=== PATIENT | female | born 1965 | race Caucasian/White ===

== ENCOUNTER → 2020-02-10 09:38 | Outpatient (BNVA) | payer MEDICARE, SELFPAY | PROVIDERS: Family Provider Nurse Practitioner Family; PCP Nurse Practitioner Family; Visit Provider Family Medicine | DX: S50.12XA Contusion of left forearm, initial encounter (principal); X58.XXXA Exposure to other specified factors, initial encounter | CPT/HCPCS: 73090 ==

== ENCOUNTER 2021-03-14 23:16 | Emergency (ER) | payer MEDICARE, SELFPAY ==
[2021-03-14 23:35] VITALS: BP 147/91; PULSE 67; RESP 15; TEMP 36.6; O2SAT 100; BMI 24.4
--- NOTE | 2021-03-14 23:40 | PC.NURSE ---
Patient was placed in [facility] in triage.
--- NOTE | 2021-03-14 23:56 | CTR_ITS ---
PROCEDURE INFORMATION: Exam: CT Cervical Spine Without Contrast Exam date and time: 03/14/2021 11:57 PM Age: 56 years old Clinical indication: Injury or trauma; Blunt trauma; Injury details: Fall off horse x Friday. Headache and pain in neck; Additional info: Fall of horse TECHNIQUE: Imaging protocol: Computed tomography images of the cervical spine without contrast. Radiation optimization: All CT scans at this facility use at least one of these dose optimization techniques: automated exposure control; mA and/or kV adjustment per patient size (includes targeted exams where dose is matched to clinical indication); or iterative reconstruction. ADDITIONAL STUDY INFORMATION: Total DLP (mGy-cm): 377.39 COMPARISON: No relevant prior studies available. FINDINGS: There is mild multilevel malalignment, likely secondary to degenerative changes. Height of cervical bodies appears within normal limits. Straightening of the cervical spine may be due to muscle spasm. There are moderate multilevel degenerative changes in the cervical spine. There appears to be spinal canal narrowing. Further assessment cannot be made of the cervical spinal canal or its contents due to artifacts. No convincing acute fracure is demonstrated when allowing for the degenerative changes. Consider MRI of cervical spine for further assessment if clinically warranted, particularly for further assessment of the spinal canal and its contents, spinal cord, nerve roots, intervertebral disks, ligaments, other spinal soft tissues, bone edema, etc., if patient has no contraindication to MRI. CT/CT cervical spin wo con* [id number] IMPRESSION: No convincing acute fracture is demonstrated when allowing for moderate degenerative changes as discussed above. Radiation Dose CTDIVOL = (mGy): DLP = 377.39 (mGy-cm)
--- NOTE | 2021-03-14 23:56 | CTR_ITS ---
PROCEDURE INFORMATION: Exam: CT Head Without Contrast Exam date and time: 03/14/2021 11:57 PM Age: 56 years old Clinical indication: Injury or trauma; Blunt trauma (contusions or hematomas); Without loss of consciousness; Injury details: Fall of horse x Friday. Headache and pain in neck; Additional info: Fall of of horse TECHNIQUE: Imaging protocol: Computed tomography of the head without contrast. Radiation optimization: All CT scans at this facility use at least one of these dose optimization techniques: automated exposure control; mA and/or kV adjustment per patient size (includes targeted exams where dose is matched to clinical indication); or iterative reconstruction. ADDITIONAL STUDY INFORMATION: Total DLP (mGy-cm): 798.81 COMPARISON: No relevant prior studies available. FINDINGS: Evaluation of the brain demonstrates no areas of abnormal density. Size of ventricular system appears within normal limits for the patient's stated age. No depressed calvarial fracture is demonstrated. Visualized paranasal sinuses and mastoid air cells demonstrate no significant opacification. CT/CT head wo con* [id number] IMPRESSION: No acute intracranial process is demonstrated. Radiation Dose CTDIVOL = (mGy): DLP = 798.81 (mGy-cm)
--- NOTE | 2021-03-14 23:57 | CTR_ITS ---
PROCEDURE INFORMATION: Exam: CT Thoracic Spine Without Contrast Exam date and time: 03/14/2021 11:57 PM Age: 56 years old Clinical indication: Injury or trauma; Blunt trauma (contusions or hematomas); Patient HX: Fall off of horse. C/O back pain. ; Additional info: Fall of horse TECHNIQUE: Imaging protocol: Computed tomography images of the thoracic spine without contrast. Radiation optimization: All CT scans at this facility use at least one of these dose optimization techniques: automated exposure control; mA and/or kV adjustment per patient size (includes targeted exams where dose is matched to clinical indication); or iterative reconstruction. COMPARISON: No relevant prior studies available. RADIATION DOSE METRICS: Total DLP (mGy-cm): 1023.93 FINDINGS: Vertebrae: No acute fracture. Normal alignment. Discs/Spinal canal/Neural foramina: No significant disc protrusion. No severe spinal canal stenosis. No significant neural foraminal narrowing. Soft tissues: Unremarkable. CT/CT thoracic spin wo con* [id number] IMPRESSION: Unremarkable CT Spine. Radiation Dose CTDIVOL = (mGy): DLP = 1023.93 (mGy-cm)
--- NOTE | 2021-03-14 23:57 | CTR_ITS ---
PROCEDURE INFORMATION: Exam: CT Lumbar Spine Without Contrast Exam date and time: 03/14/2021 11:57 PM Age: 56 years old Clinical indication: Injury or trauma; Blunt trauma (contusions or hematomas); Patient HX: Fall off of horse. C/O back pain. ; Additional info: Fall of horse TECHNIQUE: Imaging protocol: Computed tomography images of the lumbar spine without contrast. Radiation optimization: All CT scans at this facility use at least one of these dose optimization techniques: automated exposure control; mA and/or kV adjustment per patient size (includes targeted exams where dose is matched to clinical indication); or iterative reconstruction. COMPARISON: No relevant prior studies available. RADIATION DOSE METRICS: Total DLP (mGy-cm): 1706.9 FINDINGS: Vertebrae: No fracture is identified. L1-L2: No significant disc protrusion. No severe spinal canal stenosis. No significant neural foraminal narrowing. L2-L3: There is diffuse posterior bulging of the disc which effaces the anterior epidural space and causes moderate central canal stenosis narrowing the sagittal diameter of the canal to approximately 8 mm. L3-L4: There is diffuse posterior bulging of the disc which causes moderate central canal stenosis narrowing the sagittal diameter canal to approximately 8 mm. L4-L5: There is diffuse posterior bulging of the disc and some hypertrophy of ligamentum flavum bilaterally causing mild central canal stenosis narrowing the sagittal diameter canal to approximately 9 mm. L5-S1: There is diffuse posterior bulging of the L5-S1 disc without significant central canal or foraminal stenosis. Soft tissues: Unremarkable. CT/CT lumbar spine wo con* [id number] IMPRESSION: 1. Degenerative changes and multilevel stenosis. 2. No fracture is identified. Radiation Dose CTDIVOL = (mGy): DLP = 1706.9 (mGy-cm)
--- NOTE | 2021-03-15 01:31 | ED_ITS ---
HPI - Neck Pain/Injury General: Chief Complaint: Neck Pain/Injury Stated Complaint: fell off horse/back & neck injury Time Seen by Provider: 03/15/21 00:28 Source: patient Mode of arrival: ambulatory Limitations: no limitations History of Present Illness: HPI Narrative: 56-year-old female states she was getting off a horse on Friday and slipped and fell backwards. She states she fell to the ground and struck her head neck and back. States has had neck and back pain since then along with a mild headache. She denies any loss conscious. States her most pain is in the left side of her neck and rates it a 7 out of 10. Is worse with movement. Denies any weakness or numbness in her extremities. Denies any other injuries. Associated symptoms: Reports headache(s); Denies nausea Review of Systems Const: Denies: fever(s), chills, body aches or change in appetite Eyes: Denies: blurry vision or eye discomfort ENMT: Denies: throat pain or dental pain Card: Denies: chest pain Resp: Denies: dyspnea GI: Denies: abdominal pain, nausea, vomiting or diarrhea : Denies: dysuria Musc: Reports: neck pain and back pain Skin/Breast: Denies: rash Neuro: Reports: headache(s) Psych: Denies: depression Terrance/Lymph: Denies: easy bruising All/Imm: Denies: urticaria PFSH ED PFSH: Surgical History H/O hernia repair H/O: hysterectomy Family History Other Cancer Diabetes Heart disease Social History Smoking and tobacco status: never smoked Second hand smoke exposure: No Alcohol intake: never Desire information about alcohol rehabilitation?: No Desire information about substance/drug rehabilitation?: No History of recent travel: No Current gender identity: Female Physical Exam Const: COMMON NORMALS: no acute distress, patient oriented x3 and healthy appearing HENMT: COMMON NORMALS: normocephalic and atraumatic HEAD & SCALP: normocephalic and atraumatic Eye: COMMON NORMALS: Equal, round and reactive pupils present and EOMs intact bilaterally PUPIL: Yes Equal, round and reactive pupils present Neck/C-Spine: OTHER: Currently in C-spine no midline tenderness through the collar mainly tenderness over the left trapezius Chest: COMMONS NORMALS: normal inspection of the chest and normal palpation of entire chest wall Resp: COMMON NORMALS: normal respiratory effort, No retractions, No use of accessory muscles and clear to auscultation bilaterally AUSCULTATION: clear to auscultation bilaterally Cardio: COMMON NORMALS: regular rate, regular rhythm and No murmurs present (Cardio) RATE: regular rate RHYTHM: regular rhythm GI: COMMON NORMALS: Normal to inspection, nondistended, normoactive bowel sounds present, Soft to palpation, non-tender and no masses PALPATION: Yes Soft to palpation Back/Pelvis: OTHER: Minor tenderness along spine Extremity: COMMON NORMALS: normal to inspection and full ROM Neuro: COMMON NORMALS: patient oriented x3, moves all extremities and no focal motor deficits Psych: COMMON NORMALS: mental status grossly normal, Normal thought process pr esent and cooperative THOUGHT PROCESS: Normal thought process present Skin: COMMON NORMALS: no rashes or lesions noted and no wounds GENERAL SKIN EXAM: no rashes or lesions noted Course Vital Signs: Vital signs: Vital Signs Temperature 97.9 F 03/14/21 23:35 Pulse Rate 67 03/14/21 23:35 Respiratory Rate 15 03/14/21 23:35 Blood Pressure 147/91 03/14/21 23:35 Pulse Oximetry 100 03/14/21 23:35 MDM - Neck Pain/Injury MDM Narrative: Medical decision making narrative: Patient presents here with cervical strain from a fall. Patient's CT scans here showed no acute fracture. We will place her on [place] along with Robaxin. She is to ice the area. She is stable for discharge and has no other signs of any injuries. Abdominal exam is benign. Imaging Data^: CT Head: Radiologist's impression: [address] [place] [address] CT Scan Report Signed Patient: Diana Quiros Unit #: [id number] : 1965 Age/Sex: 56 / F ADM Date: 03/14/21 Loc: ER Room/Bed: Attending Dr: Ordering Provider/Ordering MD: Rosalina Bullock MD Date of Service: 03/14/21 Procedure(s): CT head wo con* [id number] Accession Number(s): [id number] Report Number: [id number] PROCEDURE INFORMATION: Exam: CT Head Without Contrast Exam date and time: 03/14/2021 11:57 PM Age: 56 years old Clinical indication: Injury or trauma; Blunt trauma (contusions or hematomas); Without loss of consciousness; Injury details: Fall of horse x Friday. Headache and pain in neck; Additional info: Fall of of horse TECHNIQUE: Imaging protocol: Computed tomography of the head without contrast. Radiation optimization: All CT scans at this facility use at least one of these dose optimization techniques: automated exposure control; mA and/or kV adjustment per patient size (includes targeted exams where dose is matched to clinical indication); or iterative reconstruction. ADDITIONAL STUDY INFORMATION: Total DLP (mGy-cm): 798.81 COMPARISON: No relevant prior studies available. FINDINGS: Evaluation of the brain demonstrates no areas of abnormal density. Size of ventricular system appears within normal limits for the patient's stated age. No depressed calvarial fracture is demonstrated. Visualized paranasal sinuses and mastoid air cells demonstrate no significant opacification. CT/CT head wo con* [id number] IMPRESSION: No acute intracranial process is demonstrated Other CT: Radiologist's impression: [address] [address] [address] Scan Report Signed Patient: Diana Quiros Unit #: [id number] : 1965 Age/Sex: 56 / F ADM Date: 03/14/21 Loc: ER Room/Bed: Attending Dr: Ordering Provider/Ordering MD: Rosalina Bullock MD Date of Service: 03/14/21 Procedure(s): CT cervical spin wo con* [id number] Accession Number(s): [id number] Report Number: [id number] PROCEDURE INFORMATION: Exam: CT Cervical Spine Without Contrast Exam date and time: 03/14/2021 11:57 PM Age: 56 years old Clinical indication: Injury or trauma; Blunt trauma; Injury details: Fall off horse x Friday. Headache and pain in neck; Additional info: Fall of horse TECHNIQUE: Imaging protocol: Computed tomography images of the cervical spine without contrast. Radiation optimization: All CT scans at this facility use at least one of these dose optimization techniques: automated exposure control; mA and/or kV adjustment per patient size (includes targeted exams where dose is matched to clinical indication); or iterative reconstruction. ADDITIONAL STUDY INFORMATION: Total DLP (mGy-cm): 377.39 COMPARISON: No relevant prior studies available. FINDINGS: There is mild multilevel malalignment, likely secondary to degenerative changes. Height of cervical bodies appears within normal limits. Straightening of the cervical spine may be due to muscle spasm. There are moderate multilevel degenerative changes in the cervical spine. There appears to be spinal canal narrowing. Further assessment cannot be made of the cervical spinal canal or its contents due to artifacts. No convincing acute fracure is demonstrated when allowing for the degenerative changes. Consider MRI of cervical spine for further assessment if clinically warranted, particularly for further assessment of the spinal canal and its contents, spinal cord, nerve roots, intervertebral disks, ligaments, other spinal soft tissues, bone edema, etc., if patient has no contraindication to MRI. CT/CT cervical spin wo con* [id number] IMPRESSION: No convincing acute fracture is demonstrated when allowing for moderate degenerative changes as discussed above. ct l spine: Radiologist's impression: [address] [address] [address] Scan Report Signed Patient: Diana Quiros Unit #: [id number] : 1965 Age/Sex: 56 / F ADM Date: 03/14/21 Loc: ER Room/Bed: Attending Dr: Ordering Provider/Ordering MD: Rosalina Bullock MD Date of Service: 03/14/21 Procedure(s): CT lumbar spine wo con* [id number] Accession Number(s): [id number] Report Number: [id number] PROCEDURE INFORMATION: Exam: CT Lumbar Spine Without Contrast Exam date and time: 03/14/2021 11:57 PM Age: 56 years old Clinical indication: Injury or trauma; Blunt trauma (contusions or hematomas); Patient HX: Fall off of horse. C/O back pain. ; Additional info: Fall of horse TECHNIQUE: Imaging protocol: Computed tomography images of the lumbar spine without contrast. Radiation optimization: All CT scans at this facility use at least one of these dose optimization techniques: automated exposure control; mA and/or kV adjustment per patient size (includes targeted exams where dose is matched to clinical indication); or iterative reconstruction. COMPARISON: No relevant prior studies available. RADIATION DOSE METRICS: Total DLP (mGy-cm): 1706.9 FINDINGS: Vertebrae: No fracture is identified. L1-L2: No significant disc protrusion. No severe spinal canal stenosis. No significant neural foraminal narrowing. L2-L3: There is diffuse posterior bulging of the disc which effaces the anterior epidural space and causes moderate central canal stenosis narrowing the sagittal diameter of the canal to approximately 8 mm. L3-L4: There is diffuse posterior bulging of the disc which causes moderate central canal stenosis narrowing the sagittal diameter canal to approximately 8 mm. L4-L5: There is diffuse posterior bulging of the disc and some hypertrophy of ligamentum flavum bilaterally causing mild central canal stenosis narrowing the sagittal diameter canal to approximately 9 mm. L5-S1: There is diffuse posterior bulging of the L5-S1 disc without significant central canal or foraminal stenosis. Soft tissues: Unremarkable. CT/CT lumbar spine wo con* [id number] IMPRESSION: 1. Degenerative changes and multilevel stenosis. 2. No fracture is identified. ct t spine: Radiologist's impression: [place] [address] CT Scan Report Signed Patient: Diana Quiros Unit #: [id number] : 1965 Age/Sex: 56 / F ADM Date: 03/14/21 Loc: ER Room/Bed: Attending Dr: Ordering Provider/Ordering MD: Rosalina Bullock MD Date of Service: 03/14/21 Procedure(s): CT thoracic spin wo con* [id number] Accession Number(s): [id number] Report Number: [id number] PROCEDURE INFORMATION: Exam: CT Thoracic Spine Without Contrast Exam date and time: 03/14/2021 11:57 PM Age: 56 years old Clinical indication: Injury or trauma; Blunt trauma (contusions or hematomas); Patient HX: Fall off of horse. C/O back pain. ; Additional info: Fall of horse TECHNIQUE: Imaging protocol: Computed tomography images of the thoracic spine without contrast. Radiation optimization: All CT scans at this facility use at least one of these dose optimization techniques: automated exposure control; mA and/or kV adjustment per patient size (includes targeted exams where dose is matched to clinical indication); or iterative reconstruction. COMPARISON: No relevant prior studies available. RADIATION DOSE METRICS: Total DLP (mGy-cm): 1023.93 FINDINGS: Vertebrae: No acute fracture. Normal alignment. Discs/Spinal canal/Neural foramina: No significant disc protrusion. No severe spinal canal stenosis. No significant neural foraminal narrowing. Soft tissues: Unremarkable. CT/CT thoracic spin wo con* [id number] IMPRESSION: Unremarkable CT Spine. Discharge Plan Discharge Patient Disposition: Home Clinical Impression: Strain of neck muscle Qualifiers: Encounter type: initial encounter Qualified Code(s): S16.1XXA - Strain of muscle, fascia and tendon at neck level, initial encounter Fall Qualifiers: Encounter type: initial encounter Qualified Code(s): W19.XXXA - Unspecified fall, initial encounter Condition: Stable Prescriptions: New hydrocodone-acetaminophen 5-325 mg tablet 1 tab PO Q6H PRN (Reason: pain) Qty: 10 RF: 0 Robaxin-750 750 mg tablet 750 mg PO Q6H Qty: 30 RF: 0 No Action prednisone 20 mg tablet 40 mg PO DAILY 5 Days Qty: 10 RF: 0 Discharge Orders: Discharge ED (Routine); Ordered 03/15/21 Ordered By: Rosalina Bullock Referrals: Gustavo Merritt FNP [Primary Care Provider] - Discharge Diet: Advance as tolerated Discharge Activity: Resume usual activity Patient Instructions: Cervical Sprain (ED), Fall Prevention (ED) Coding Level of Care Code ED Elevator Operator Service for Jaclyn Villaseñor
[2021-03-15 01:50] VITALS: BP 145/87; PULSE 67; RESP 16; TEMP 36.6; O2SAT 99
[2021-03-15] MEDS: HYDROcodone-acetaminophen 5-325 mg Tablet 1 TAB PO (01:50)
== END 2021-03-15 01:53 | disposition home or self-care (01) ==
PROVIDERS: Emergency Provider Emergency Medicine; PCP Nurse Practitioner Family
DX: S16.1XXA Strain of muscle, fascia and tendon at neck level, initial encounter (principal); V80.010A Animal-rider injured by fall from or being thrown from horse in noncollision accident, initial encounter
CPT/HCPCS: 70450; 72125; 72128; 72131; 99283

== ENCOUNTER → 2021-12-22 14:35 | Outpatient (BNVA) | payer MEDICARE, SELFPAY | PROVIDERS: PCP Nurse Practitioner Family; Visit Provider Nurse Practitioner Family | DX: R39.9 Unspecified symptoms and signs involving the genitourinary system (principal); N30.00 Acute cystitis without hematuria | CPT/HCPCS: 81000 ==

== ENCOUNTER 2022-01-05 11:52 | Emergency (ER) | payer MEDICARE, SELFPAY ==
[2022-01-05 12:03] VITALS: BP 145/90; PULSE 90; RESP 16; TEMP 36.9; O2SAT 95; BMI 22.4
--- NOTE | 2022-01-05 12:12 | USR_ITS ---
PROCEDURE INFORMATION: Exam: US Duplex Left Lower Extremity Veins, Limited Exam date and time: 01/05/2022 12:12 PM Age: 56 years old Clinical indication: Pain; Leg, lower; Left; Additional info: Leg pain TECHNIQUE: Imaging protocol: Real-time Duplex ultrasound of the Left Lower Extremity with 2-D andrade scale, color Doppler flow and spectral waveform analysis with image documentation. Limited exam focused on the left lower extremity veins. COMPARISON: CT abdomen pelvis w con* [id number] 11/27/2018 12:45 AM FINDINGS: Left deep veins: Unremarkable. The common femoral, femoral, proximal profunda femoral and popliteal veins are patent without thrombus. Normal Doppler waveforms. Normal compressibility and/or augmentation response. Left superficial veins: Unremarkable. Saphenofemoral junction is patent without thrombus. Soft tissues: Unremarkable. US/CV venous duplex [facility] [address] IMPRESSION: No evidence of deep vein thrombosis.
--- NOTE | 2022-01-05 12:16 | W.ED.EXTPRO ---
HPI - Extremity Problem General: Chief complaint: Extremity Injury, Lower Stated complaint: Dr Oneil sent Leg pain, heaviness Time Seen by Provider: 01/05/22 12:12 Source: patient Mode of arrival: ambulatory Limitations: no limitations History of Present Illness: Patient is a nice 56-year-old female presents to ED today after she was referred here from the [facility] for concerns of possible DVT. Patient states over the past 2 to 3 days patient has had pain to the posterior aspect of her left lower extremity and feels like her leg is heavy . She has not noticed any significant swelling. Does report she feels some numbness/tingling. She denies any back/hip pain. She has not noticed any color or temperature changes. She states she did have a blood clot back in the . MD Complaint: extremity pain Onset (ago): day(s) Pain Consistency: constant Location: left and lower extremity Radiation: none Relieving factors: nothing Associated symptoms: Reports no associated symptoms; Deny chest pain, fever(s) or rash Review of Systems Const: Denies: fever(s), chills, body aches, fatigue or malaise Card: Denies: chest pain Resp: Denies: dyspnea GI: Denies: abdominal pain, nausea, vomiting or diarrhea : Denies: flank pain or dysuria Musc: Reports: extremity pain; Denies: neck pain, back pain, joint pain, joint swelling, joint redness, joint warmth or limited range of motion Skin/Breast: Denies: rash Neuro: Reports: sensory changes; Denies: headache(s), weakness in extremities, difficulty walking or frequent falls [facility] ED PFSH: Medical History History of pulmonary embolus (PE) Surgical History H/O hernia repair H/O: hysterectomy Family History Other Cancer Diabetes Heart disease Social History Smoking and tobacco status: never smoked Second hand smoke exposure: No Alcohol intake: never Desire information about alcohol rehabilitation?: No Desire information about substance/drug rehabilitation?: No History of recent travel: No Current gender identity: Female Physical Exam Const: COMMON NORMALS: no acute distress, average body habitus, patient oriented x3, no limitations, healthy appearing, alert and well nourished Resp: COMMON NORMALS: normal respiratory effort and clear to auscultation bilaterally AUSCULTATION: clear to auscultation bilaterally Cardio: COMMON NORMALS: regular rate and regular rhythm RATE: regular rate RHYTHM: regular rhythm GI: COMMON NORMALS: Normal to inspection, nondistended, normoactive bowel sounds present, Soft to palpation, non-tender and no masses PALPATION: Yes Soft to palpation Back/Pelvis: COMMON NORMALS: thoracic and lumbar spine normal to inspection, no thoracic nor lumbar tenderness and thoraco-lumbar ROM normal PELVIS: Yes buttocks normal and No sciatic notch tenderness SACROILIAC JOINTS: Yes SI joints normal Extremity: COMMON NORMALS: normal to inspection, full ROM, capillary refill normal, no joint enlargement, no clubbing, cyanosis or edema and no pedal edema GENERAL: Yes normal exam except as noted LEFT LOWER EXTREMITY: Yes lower leg OTHER: TTP L posterior thigh, popliteal region and calf; positive Mely's; no swelling noted; no color/temp changes when compared to R LE; DP/PT pulses normal with brisk cap refill Neuro: COMMON NORMALS: patient oriented x3 SENSORIUM/ORIENTATION: Yes alert Course Vital Signs: Vital signs: Vital Signs Temperature 98.4 F 01/05/22 12:03 Pulse Rate 90 01/05/22 12:03 Respiratory Rate 16 01/05/22 12:03 Blood Pressure 145/90 01/05/22 12:03 Pulse Oximetry 95 01/05/22 12:03 MDM - Extremity (Nontraumatic) Medical Decision Making Patient's ultrasound of her left lower extremity shows no DVT. She has palpable DP/PT pulses and no concerns for acute arterial occlusion at this time. Discussed other etiologies such as lumbar/sacral radiculopathy, varicose veins/venous reflux, chronic PVD. Recommend she follow-up with her primary care provider for further evaluation. Patient is stable for discharge from an ED standpoint. Lab Data Radiology Impressions Venous Duplex 01/05/22 12:12 IMPRESSION: No evidence of deep vein thrombosis. 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
== END 2022-01-05 13:58 | disposition home or self-care (01) ==
PROVIDERS: Emergency Provider Physician Assistant; PCP Nurse Practitioner Family
DX: M79.605 Pain in left leg (principal); Z86.711 Personal history of pulmonary embolism
CPT/HCPCS: 93971; 99282

== ENCOUNTER → 2023-01-08 09:40 | Outpatient (BNVA) | payer MEDICARE, SELFPAY | PROVIDERS: PCP Family Medicine; Visit Provider Nurse Practitioner Family | DX: N12 Tubulo-interstitial nephritis, not specified as acute or chronic (principal); R10.9 Unspecified abdominal pain | CPT/HCPCS: 81000; 87086 ==

== ENCOUNTER → 2023-02-02 10:27 | Outpatient (BNVA) | payer MEDICARE, SELFPAY | PROVIDERS: PCP Family Medicine; Visit Provider Nurse Practitioner Family | DX: R39.9 Unspecified symptoms and signs involving the genitourinary system (principal) | CPT/HCPCS: 81000 ==

== ENCOUNTER 2023-07-11 23:55 | Emergency (ER) | payer MEDICARE, SELFPAY ==
[2023-07-12 00:08] VITALS: BP 132/82; PULSE 87; RESP 16; TEMP 37.1; O2SAT 95; BMI 23.4
[2023-07-12 00:24] VITALS: BP 144/77; PULSE 87; RESP 16; O2SAT 94
--- NOTE | 2023-07-12 00:27 | W.ED.SKABFB ---
HPI - Skin/Abscess/Foreign Bdy General: Chief complaint: Skin/Abscess/Foreign Body Stated complaint: rash in the chest area and neck pain Time Seen by Provider: 07/12/23 00:19 History of Present Illness: 58-year-old female comes in with a generalized rash to her torso and neck. Patient reports noticing the rash started this evening. Patient had recently been prescribed azithromycin and has been taking it for about 3 days when the rash erupted this evening. Patient appears nontoxic. Patient appears in no pain. Patient reports that she had taken some Tylenol prior to coming to the ER and her fever is better. Patient was on the azithromycin for ear infection. Associated symptoms: Reports fever(s) Review of Systems General: Reports: 10 or more systems reviewed and unremarkable except in HPI and below Const: Reports: fever(s) Skin/Breast: Reports: rash PFSH ED PFSH: Medical History History of pulmonary embolus (PE) Surgical History H/O hernia repair H/O: hysterectomy Family History Other Cancer Diabetes Heart disease Social History Smoking and tobacco status: never smoked Second hand smoke exposure: No Alcohol intake: never Desire information about alcohol rehabilitation?: No Substance/Drug Use: never Desire information about substance/drug rehabilitation?: No Do you think of yourself as: Straight/Heterosexual Current gender identity: Female Physical Exam Const: COMMON NORMALS: alert HENMT: COMMON NORMALS: normocephalic and TM's normal bilaterally HEAD & SCALP: normocephalic TYMPANIC MEMBRANE: TM's normal bilaterally Neck/C-Spine: COMMON NORMALS: full ROM and no meningeal signs Resp: COMMON NORMALS: normal respiratory effort and clear to auscultation bilaterally AUSCULTATION: clear to auscultation bilaterally Cardio: COMMON NORMALS: regular rate RATE: regular rate GI: COMMON NORMALS: Soft to palpation PALPATION: Yes Soft to palpation Extremity: COMMON NORMALS: no pedal edema Neuro: SENSORIUM/ORIENTATION: Yes alert MENINGEAL SIGNS: Yes no meningeal signs Skin: NARRATIVE SKIN EXAM: Generalized macular rash to the torso. Course Vital Signs: Vital signs: Vital Signs Temperature 98.7 F 07/12/23 00:08 Pulse Rate 87 07/12/23 00:24 Respiratory Rate 16 07/12/23 00:24 Blood Pressure 144/77 07/12/23 00:24 Pulse Oximetry 94 07/12/23 00:24 Oxygen Delivery Me thod Room Air 07/12/23 00:08 MDM - Skin/Abscess/Foreign Bdy Medicial Decision Making Patient comes in for an eruption of a rash starting this evening. Patient is on day 3 of antibiotic for a ear infection. On exam respirations are even lungs are clear to auscultation. Patient moves neck well. Vital signs are normal. Patient has a generalized macular rash to the torso. Abdomen soft nontender. Skin is warm and dry. Differential diagnosis includes but not limited to drug eruption, viral exanthem, photodermatitis, hives. No signs of severe distress is noted. Believe this is a drug eruption secondary to the azithromycin use. Recommended cessation of the azithromycin. Did not recommend new antibiotic. Since patient had a fever it may be secondary to a viral exanthem which most likely still does not require further antibiotics. Review of the record patient has had several other medication reactions to other antibiotics such as doxycycline and levofloxacin. Patient may just has a sensitivity that causes her to break out in rash when on antibiotics. Did not recommend any other treatment except antihistamines and 1 dose of 6 mg of dexamethasone. Patient reported understanding of care plan and need for follow-up or return to the ER. Discharge Plan Discharge Patient Disposition: Home Clinical Impression: Generalized skin eruption due to drugs and medicaments Condition: Stable Prescriptions: No Action sulfamethoxazole-trimethoprim [Bactrim DS] 800-160 mg tablet 1 tab PO BID 7 Days Qty: 14 0RF Discharge Orders: Discharge ED (Routine); Ordered 07/12/23 Ordered By: Julian Case Referrals: Louise Mullen MD [Primary Care Provider] - Discharge Diet: Usual diet Discharge Activity: Increase activity as tolerated Patient Instructions: Acute Rash (ED) Activity Restrictions/Additional Instructions: Stop azithromycin. Use Claritin or Zyrtec 1 or 2 tabs twice a day for itching and rash. Drink plenty of water and fluids. Follow-up with primary care in 3 to 5 days for recheck. Return to ER for worsening symptoms such as inability to hold fluids down, increasing shortness of breath, or new concerns. Coding Level of Care Code ED [employer] Developer for Jaclyn Villaseñor
[2023-07-12] MEDS: dexamethasone 10 mg/mL INJ 6 MG IM (00:42)
[2023-07-12] MEDS: cetirizine 10 mg Tablet PO (00:42)
== END 2023-07-12 00:46 | disposition home or self-care (01) ==
PROVIDERS: Emergency Provider Nurse Practitioner Family; PCP Family Medicine
DX: L27.1 Localized skin eruption due to drugs and medicaments taken internally (principal); T36.95XA Adverse effect of unspecified systemic antibiotic, initial encounter
CPT/HCPCS: 96372; 99284; J1100

== ENCOUNTER 2023-10-15 13:46 | Emergency (ER) | payer MEDICARE, SELFPAY ==
[2023-10-15 13:51] VITALS: BP 119/83; PULSE 115; RESP 16; TEMP 37.2; O2SAT 98; BMI 24.7
--- NOTE | 2023-10-15 14:11 | CTR_ITS ---
PROCEDURE INFORMATION: Exam: CT Abdomen And Pelvis With Contrast Exam date and time: 10/15/2023 2:53 PM Age: 58 years old Clinical indication: Nausea and vomiting and other: Diarrhea; Abdominal pain; Generalized; Prior surgery; Surgery date: 6+ months; Surgery type: Hyst, bladder, gb; Additional info: Abd pain TECHNIQUE: Imaging protocol: Computed tomography of the abdomen and pelvis with contrast. Radiation optimization: All CT scans at this facility use at least one of these dose optimization techniques: automated exposure control; mA and/or kV adjustment per patient size (includes targeted exams where dose is matched to clinical indication); or iterative reconstruction. Contrast material: OMNI 350; Contrast volume: 100 ml; Contrast route: INTRAVENOUS (IV); REPORTING DATA: Count of CT and Cardiac NM exams in prior 12 months: This patient has received 0 known CTs and 0 known cardiac nuclear medicine studies in the 12 months prior to the current study. COMPARISON: CT abdomen pelvis w con* [id number] 11/27/2018 12:45 AM RADIATION DOSE METRICS: Total DLP (mGy-cm): 370.3 FINDINGS: Liver: No mass. Gallbladder and bile ducts: Cholecystectomy. Pancreas: No ductal dilation. Spleen: No splenomegaly. Adrenal glands: No mass. Kidneys and ureters: No hydronephrosis. Stomach and bowel: Fluid-filled loops of distal small bowel and colon with mild wall thickening/enhancement. No bowel obstruction. Appendix: No evidence of appendicitis. Intraperitoneal space: No free air. No significant fluid collection. Vasculature: No abdominal aortic aneurysm. Lymph nodes: No enlarged lymph nodes. Urinary bladder: Decompressed. Reproductive: Unremarkable as visualized. Bones/joints: Degenerative changes without acute findings. Soft tissues: Unremarkable. CT/CT abdomen pelvis w con* [id number] IMPRESSION: Findings suggestive of enteritis/enterocolitis. No bowel obstruction.
[2023-10-15 14:12] LABS: Basophils # 0.1 10^3/uL (0.0-0.1); Basophils % 0.5 %; Eosinophils % 0.1 %; Hematocrit 48.7 % (36-47); Lymphocytes # 0.2 10^3/uL (0.8-4.8); Lymphocytes % 1.8 %; Mean Corpuscular HGB Conc 32.4 g/dL (30-55); Mean Corpuscular Hemoglobin 29.7 pg (27-33); Mean Corpuscular Volume 91.5 fl (85-98); Mean Platelet Volume 10.1 fL (7.4-10.4); Monocytes # 0.3 10^3/uL (0.2-0.9); Monocytes % 2.5 %; Neutrophils # 11.65 10^3/uL (1.8-7.7); Neutrophils % 94.9 %; Nucleated Red Blood Cells % 0 %; Platelet Count 246 10^3/cmm (157-399); Red Blood Count 5.32 10^6/uL (3.85-5.65); Red Cell Distribution Width 12.8 % (12.1-15.1); White Blood Count 12.27 10^3/uL (3.29-11.43)
--- NOTE | 2023-10-15 14:12 | ED_ITS ---
HPI - Abdominal Pain 2 General: Chief Complaint: Abdominal Pain Stated Complaint: Abd pain, Nausea Time Seen by Provider: 10/15/23 13:50 Source: patient Mode of arrival: ambulatory Limitations: no limitations History of Present Illness: 58-year-old female states she has been h aving diffuse abdominal pain throughout the day. States pain is worse on the right side she rates it a 7 out of 10. She denies any fevers denies any vomiting she has had some slight diarrhea. She has had multiple surgeries in the past. States it is worse with movement improved with rest. Associated Symptoms: Denies chills, diarrhea, dysuria, fever(s), nausea and vomiting Review of Systems 2 Const: Denies: fever(s), chills, body aches or change in appetite ENMT: Denies: throat pain or dental pain Card: Denies: chest pain Resp: Denies: dyspnea GI: Reports: abdominal pain; Denies: nausea, vomiting or diarrhea : Denies: dysuria Musc: Denies: neck pain or back pain Skin/Breast: Denies: rash Neuro: Denies: headache(s) PFSH ED 2 PFSH: Medical History History of pulmonary embolus (PE) Surgical History H/O hernia repair H/O: hysterectomy Family History Other Cancer Diabetes Heart disease Social History Smoking and tobacco/nicotine status: never used tobacco/nicotine Second hand smoke exposure: No Alcohol intake: never Substance/Drug Use: never Do you think of yourself as: Straight/Heterosexual Current gender identity: Female Physical Exam 2 Const: COMMON NORMALS: no acute distress, patient oriented x3 and healthy appearing HENMT: COMMON NORMALS: normocephalic and atraumatic HEAD & SCALP: n ormocephalic and atraumatic Eye: COMMON NORMALS: conjunctivae normal CONJUNCTIVA: Yes conjunctivae normal Neck/C-Spine: COMMON NORMALS: full ROM and supple Chest: COMMONS NORMALS: normal inspection of the chest Resp: COMMON NORMALS: normal respiratory effort, No retractions, No use of accessory muscles and clear to auscultation bilaterally AUSCULTATION: clear to auscultation bilaterally Cardio: COMMON NORMALS: regular rate, regular rhythm and No murmurs present (Cardio) RATE: regular rate RHYTHM: regular rhythm GI: COMMON NORMALS: Normal to inspection, nondistended, normoactive bowel sounds present, Soft to palpation and no masses PALPATION: Yes Soft to palpation and Yes Tenderness to palpation present (GI) (diffuse) Extremity: COMMON NORMALS: normal to inspection and full ROM Neuro: COMMON NORMALS: patient oriented x3, moves all extremities and no focal motor deficits Psych: COMMON NORMALS: mental status grossly normal, Normal thought process present and cooperative THOUGHT PROCESS: Normal thought process present Skin: COMMON NORMALS: no rashes or lesions noted and no wounds GENERAL SKIN EXAM: no rashes or lesions noted Course 2 Vital Signs: Vital signs: Vital Signs Temperature 98.9 F 10/15/23 13:51 Pulse Rate 115 H 10/15/23 14:27 Respiratory Rate 15 10/15/23 14:27 Blood Pressure 121/85 10/15/23 14:27 Pulse Oximetry 98 10/15/23 14:27 Oxygen Delivery Me thod Room Air 10/15/23 14:27 MDM - Abdominal Pain Medical Decision Making Patient presents here with abdominal pain CT shows a colitis she is well- appearing here vitals are normal we will start her on antibiotics along with pain meds she is to follow-up with surgery she is return if worsening she understands agrees to plan. Medical Records I reviewed the patient's medical records. Lab Data I reviewed the patient's lab results. 10/15/23 14:06 10/15/23 14:06 Labs/Radiology: Radiology Impressions Abdomen/Pelvis CT 10/15/23 14:11 IMPRESSION: Findings suggestive of enteritis/enterocolitis. No bowel obstruction. Laboratory Results WBC 12.27 10^3/uL (3.29-11.43) H 10/15/23 14:06 RBC 5.32 10^6/uL (3.85-5.65) 10/15/23 14:06 Hgb 15.80 g/dL (11.27-16.99) 10/15/23 14:06 Hct 48.7 % (36-47) H 10/15/23 14:06 MCV 91.5 fl (85-98) 10/15/23 14:06 MCH 29.7 pg (27-33) 10/15/23 14:06 MCHC 32.4 g/dL (30-55) 10/15/23 14:06 RDW 12.8 % (12.1-15.1) 10/15/23 14:06 Plt Count 246 10^3/cmm (157-399) 10/15/23 14:06 MPV 10.1 fL (7.4-10.4) 10/15/23 14:06 Neut % (Auto) 94.9 % 10/15/23 14:06 Lymph % (Auto) 1.8 % 10/15/23 14:06 [place] % (Auto) 2.5 % 10/15/23 14:06 Eos % (Auto) 0.1 % 10/15/23 14:06 Baso % (Auto) 0.5 % 10/15/23 14:06 Neut # (Auto) 11.65 10^3/uL (1.8-7.7) H 10/15/23 14:06 Lymph # (Auto) 0.2 10^3/uL (0.8-4.8) L 10/15/23 14:06 [place] # (Auto) 0.3 10^3/uL (0.2-0.9) 10/15/23 14:06 Eos # (Auto) 0.0 10^3/uL (0.0-0.8) 10/15/23 14:06 Baso # (Auto) 0.1 10^3/uL (0.0-0.1) 10/15/23 14:06 Nucleated RBC % (auto) 0 % 10/15/23 14:06 Nucleated RBCs # 0.0 /100WBC 10/15/23 14:06 Sodium 135 mmol/L (136-145) L 10/15/23 14:06 Potassium 4.2 mmol/L (3.5-5.1) 10/15/23 14:06 Chloride 99 mmol/L (98-107) 10/15/23 14:06 Carbon Dioxide 23 mmol/L (22-29) 10/15/23 14:06 Anion Gap 17.2 (5-19) 10/15/23 14:06 BUN 23 mg/dL (6-20) H 10/15/23 14:06 Creatinine 0.8 mg/dL (0.5-0.9) 10/15/23 14:06 GFR Calculation 73.7 mL/min (90-130) L 10/15/23 14:06 Glucose 122 mg/dL (65-115) H 10/15/23 14:06 Calculated Osmolality 285 mOsm/kg (285-295) 10/15/23 14:06 Calcium 9.5 mg/dL (8.5-10.5) 10/15/23 14:06 Total Bilirubin 0.7 mg/dL (0.15-1.2) 10/15/23 14:06 AST 26 U/L (0-32) 10/15/23 14:06 ALT 35 U/L (0-33) H 10/15/23 14:06 Alkaline Phosphatase 71 U/L (35-105) 10/15/23 14:06 Total Protein 7.9 g/dL (6.6-8.7) 10/15/23 14:06 Albumin 4.9 g/dL (3.5-5.2) 10/15/23 14:06 Globulin 3.0 g/dL (1.3-4.6) 10/15/23 14:06 Lipase 34 U/L (13-60) 10/15/23 14:06 Urine Color Yellow (Yellow) 10/15/23 14:26 Urine Appearance Clear (CLEAR) 10/15/23 14:26 Urine pH 5 (5-7) 10/15/23 14:26 Ur Specific [place] 1.030 (1.005-1.030) 10/15/23 14:26 Urine Protein Neg (Negative) 10/15/23 14:26 Urine Glucose (UA) Norm (Normal) 10/15/23 14:26 Urine Ketones 1+ (Negative) H 10/15/23 14:26 Urine Blood Neg (Negative) 10/15/23 14:26 Urine Nitrate Negative (Negative) 10/15/23 14:26 Urine Bilirubin Neg (Negative) 10/15/23 14:26 Urine Urobilinogen Norm mg/dL (Negative) 10/15/23 14:26 Ur Leukocyte Esterase Negative (Negative) 10/15/23 14:26 All radiology interpretation(s) finalized by discharge Discharge Plan Discharge Patient Disposition: Home Clinical Impression: Colitis Abdominal pain Qualifiers: Abdominal location: generalized Qualified Code(s): R10.84 - Generalized abdominal pain Condition: Stable Prescriptions: New hydrocodone-acetaminophen 5-325 mg tablet 1 tab PO Q6H PRN (Reason: pain) Qty: 14 0RF metronidazole 500 mg tablet 500 mg PO Q8H 7 Days Qty: 21 0RF ondansetron 4 mg tablet,disintegrating 4 mg PO Q6H PRN (Reason: nausea and vomiting) Qty: 14 0RF Augmentin 500-125 mg tablet 1 tab PO BID Qty: 14 0RF Discharge Orders: Discharge ED (Routine); Ordered 10/15/23 Ordered By: Rosalina Bullock Referrals: Alfredito Leary DO [Physician] - 1-3 days Louise Mullen MD [Primary Care Provider] - Discharge Diet: Advance as tolerated Discharge Activity: Resume usual activity Patient Instructions: Abdominal Pain (ED), Colitis (ED), Opioid Safety Coding Level of Care Code ED Shake Maker for Jaclyn Villaseñor
--- NOTE | 2023-10-15 14:14 | PC.PHAR ---
pt states takes no prescription or otc medications
[2023-10-15] MEDS: HYDROmorphone 1 mg/mL INJ 1 mL 0.5 MG IVP (14:25)
[2023-10-15] MEDS: ondansetron 2 mg/ML SDV 2 mL 4 MG IVP (14:25)
[2023-10-15 14:27] VITALS: BP 121/85; PULSE 115; RESP 15; O2SAT 98
[2023-10-15 14:32] LABS: Alanine Aminotransferase 35 U/L (0-33); Albumin Level 4.9 g/dL (3.5-5.2); Alkaline Phosphatase 71 U/L (35-105); Anion Gap 17.2 (5-19); Aspartate Amino Transferase 26 U/L (0-32); Blood Urea Nitrogen 23 mg/dL (6-20); Calcium 9.5 mg/dL (8.5-10.5); Carbon Dioxide 23 mmol/L (22-29); Chloride 99 mmol/L (98-107); Glomerular Filtration Rate 73.7 mL/min (90-130); Glucose 122 mg/dL (65-115); Lipase 34 U/L (13-60); Osmolality Calculated 285 mOsm/kg (285-295); Potassium 4.2 mmol/L (3.5-5.1); Sodium 135 mmol/L (136-145); Total Bilirubin 0.7 mg/dL (0.15-1.2); Total Protein 7.9 g/dL (6.6-8.7)
[2023-10-15 14:40] LABS: Add Urine Microscopic? NO; Charge for UA Resulting for Rev
[2023-10-15 14:45] LABS: Bilirubin Urine Neg (Negative); Blood Urine Neg (Negative); Glucose Urine UA Norm (Normal); Ketones Urine 1+ (Negative); Leukocyte Esterase Urine Negative (Negative); Nitrate Urine Negative (Negative); Protein Urine Neg (Negative); Urine Appearance Clear (CLEAR); Urine Color Yellow (Yellow); Urobilinogen Urine Norm (Negative); pH Urine 5 (5-7)
[2023-10-15] MEDS: iohexol 350 mg/mL 500 mL Btl (per mL) IV (15:00)
[2023-10-15] MEDS: HYDROcodone-acetaminophen 7.5-325 mg Tablet 1 TAB PO (16:02)
[2023-10-15 16:08] VITALS: BP 121/85; PULSE 115; RESP 15; O2SAT 98
--- NOTE | 2023-10-15 18:52 | DCPLANNER ---
Message was sent to Dr. Leary office on 10/15/23 at 0102. Clinic to contact patient.
== END 2023-10-15 16:12 | disposition home or self-care (01) ==
PROVIDERS: Emergency Provider Emergency Medicine; PCP Family Medicine
DX: K52.9 Noninfective gastroenteritis and colitis, unspecified (principal); R10.84 Generalized abdominal pain
CPT/HCPCS: 36415; 74177; 80053; 81003; 83690; 85025; 96374; 96375; 99285; J1170; J2405; Q9967

== ENCOUNTER → 2023-10-28 08:53 | Outpatient (BNVA) | payer MEDICARE, SELFPAY | PROVIDERS: PCP Family Medicine; Referring Provider Emergency Medicine; Visit Provider Surgery | DX: K52.9 Noninfective gastroenteritis and colitis, unspecified | CPT/HCPCS: 99204 ==

== ENCOUNTER 2023-11-02 01:09 | Emergency (ER) | payer MEDICARE, SELFPAY ==
[2023-11-02 01:15] VITALS: BP 146/105; PULSE 82; RESP 20; TEMP 36.8; O2SAT 97; BMI 3093.2
--- NOTE | 2023-11-02 01:21 | ED_ITS ---
HPI - Abdominal Pain 2 General: Chief Complaint: Abdominal Pain Stated Complaint: abdomen pain Time Seen by Provider: 11/02/23 01:12 Source: patient Mode of arrival: ambulatory Limitations: no limitations History of Present Illness: 58-year-old female states she has been h aving diffuse abdominal pain over the last 4 days states has been cramping in nature rates it a 6 out of 10 currently she is diagnosed with a colitis 2 weeks ago is finished antibiotics she is to follow-up with surgeon who is scheduled her for an EGD and a colonoscopy she denies any fever denies any vomiting denies any diarrhea Associated Symptoms: Denies chills, diarrhea, fever(s), nausea and vomiting Review of Systems 2 Const: Denies: fever(s) or chills ENMT: Denies: throat pain or dental pain Card: Denies: chest pain Resp: Denies: dyspnea GI: Reports: abdominal pain; Denies: nausea, vomiting or diarrhea Musc: Denies: neck pain or back pain Skin/Breast: Denies: rash Neuro: Denies: headache(s) PFSH ED 2 PFSH: Medical History History of pulmonary embolus (PE) Surgical History H/O hernia repair H/O: hysterectomy Family History Other Cancer Diabetes Heart disease Social History Smoking and tobacco/nicotine status: never used tobacco/nicotine Second hand smoke exposure: No Alcohol intake: never Substance/Drug Use: never Do you think of yourself as: Straight/Heterosexual Current gender identity: Female Physical Exam 2 Const: COMMON NORMALS: no acute distress, patient oriented x3 and healthy appearing HENMT: COMMON NORMALS: normocephalic and atraumatic HEAD & SCALP: n ormocephalic and atraumatic Neck/C-Spine: COMMON NORMALS: full ROM and supple Chest: COMMONS NORMALS: normal inspection of the chest Resp: COMMON NORMALS: normal respiratory effort Cardio: COMMON NORMALS: regular rate, regular rhythm and No murmurs present (Cardio) RATE: regular rate RHYTHM: regular rhythm GI: COMMON NORMALS: Normal to inspection, nondistended, normoactive bowel sounds present, Soft to palpation, non-tender and no masses PALPATION: Yes Soft to palpation Extremity: COMMON NORMALS: normal to inspection and full ROM Neuro: COMMON NORMALS: patient oriented x3, moves all extremities and no focal motor deficits Psych: COMMON NORMALS: mental status grossly normal, Normal thought process present and cooperative THOUGHT PROCESS: Normal thought process present Skin: COMMON NORMALS: no rashes or lesions noted and no wounds GENERAL SKIN EXAM: no rashes or lesions noted Course 2 Vital Signs: Vital signs: Vital Signs Temperature 98.2 F 11/02/23 01:15 Pulse Rate 82 11/02/23 01:15 Respiratory Rate 16 11/02/23 01:39 Blood Pressure 146/105 11/02/23 01:15 Pulse Oximetry 97 11/02/23 01:15 MDM - Abdominal Pain Medical Decision Making Patient presents with abdominal pains been going on for roughly a month her exam here is benign white counts normal she has no signs of acute abdomen we will place her on Protonix I do not feel like she needs any imaging at this time she is to follow-up with her general surgeon for her EGD return if worsening she understands agrees to plan. Medical Records I reviewed the patient's medical records. Lab Data I reviewed the patient's lab results. 11/02/23 01:22 11/02/23 01:22 Labs/Radiology: Laboratory Results WBC 5.43 10^3/uL (3.29-11.43) 11/02/23 01:22 RBC 4.78 10^6/uL (3.85-5.65) 11/02/23 01:22 Hgb 14.20 g/dL (11.27-16.99) 11/02/23 01:22 Hct 43.7 % (36-47) 11/02/23 01:22 MCV 91.4 fl (85-98) 11/02/23 01:22 MCH 29.7 pg (27-33) 11/02/23 01:22 MCHC 32.5 g/dL (30-55) 11/02/23 01:22 RDW 12.5 % (12.1-15.1) 11/02/23 01:22 Plt Count 215 10^3/cmm (157-399) 11/02/23 01:22 MPV 10.5 fL (7.4-10.4) H 11/02/23 01:22 Neut % (Auto) 52.5 % 11/02/23 01:22 Lymph % (Auto) 37.9 % 11/02/23 01:22 [place] % (Auto) 7.4 % 11/02/23 01:22 Eos % (Auto) 0.7 % 11/02/23 01:22 Baso % (Auto) 1.3 % 11/02/23 01:22 Neut # (Auto) 2.85 10^3/uL (1.8-7.7) 11/02/23 01:22 Lymph # (Auto) 2.1 10^3/uL (0.8-4.8) 11/02/23 01:22 [place] # (Auto) 0.4 10^3/uL (0.2-0.9) 11/02/23 01:22 Eos # (Auto) 0.0 10^3/uL (0.0-0.8) 11/02/23 01:22 Baso # (Auto) 0.1 10^3/uL (0.0-0.1) 11/02/23 01:22 Nucleated RBC % (auto) 0 % 11/02/23 01:22 Nucleated RBCs # 0.0 /100WBC 11/02/23 01:22 Sodium 140 mmol/L (136-145) 11/02/23 01:22 Potassium 4.3 mmol/L (3.5-5.1) 11/02/23 01:22 Chloride 102 mmol/L (98-107) 11/02/23 01:22 Carbon Dioxide 30 mmol/L (22-29) H 11/02/23 01:22 Anion Gap 12.3 (5-19) 11/02/23 01:22 BUN 16 mg/dL (6-20) 11/02/23 01:22 Creatinine 0.7 mg/dL (0.5-0.9) 11/02/23 01:22 GFR Calculation 85.9 mL/min (90-130) L 11/02/23 01:22 Glucose 110 mg/dL (65-115) 11/02/23 01:22 Calculated Osmolality 292 mOsm/kg (285-295) 11/02/23 01:22 Calcium 9.7 mg/dL (8.5-10.5) 11/02/23 01:22 Total Bilirubin 0.3 mg/dL (0.15-1.2) 11/02/23 01:22 AST 22 U/L (0-32) 11/02/23 01:22 ALT 26 U/L (0-33) 11/02/23 01:22 Alkaline Phosphatase 64 U/L (35-105) 11/02/23 01:22 Total Protein 7.5 g/dL (6.6-8.7) 11/02/23 01:22 Albumin 4.6 g/dL (3.5-5.2) 11/02/23 01:22 Globulin 2.9 g/dL (1.3-4.6) 11/02/23 01:22 Lipase 55 U/L (13-60) 11/02/23 01:22 Urine Color Yellow (Yellow) 11/02/23 01:41 Urine Appearance Sl hazy (CLEAR) A 11/02/23 01:41 Urine pH 6 (5-7) 11/02/23 01:41 Ur Specific [place] 1.015 (1.005-1.030) 11/02/23 01:41 Urine Protein Neg (Negative) 11/02/23 01:41 Urine Glucose (UA) Norm (Normal) 11/02/23 01:41 Urine Ketones 1+ (Negative) H 11/02/23 01:41 Urine Blood Neg (Negative) 11/02/23 01:41 Urine Nitrate Negative (Negative) 11/02/23 01:41 Urine Bilirubin Neg (Negative) 11/02/23 01:41 Urine Urobilinogen Norm mg/dL (Negative) 11/02/23 01:41 Ur Leukocyte Esterase 1+ (Negative) H 11/02/23 01:41 Urine RBC 0-4 /hpf (0-2) H 11/02/23 01:41 Urine WBC 5-10 /hpf (0-5) H 11/02/23 01:41 Ur Squamous Epith Cells 0-4 /hpf (0-5) H 11/02/23 01:41 Amorphous Sediment Not Reportable 11/02/23 01:41 Urine Bacteria Trace /hpf (NONE) 11/02/23 01:41 No radiology studies performed this visit Discharge Plan Discharge Patient Disposition: Home Clinical Impression: Abdominal pain Qualifiers: Abdominal location: generalized Qualified Code(s): R10.84 - Generalized abdominal pain Condition: Stable Prescriptions: New Protonix 40 mg tablet,delayed release (DR/EC) 40 mg PO DAILY Qty: 60 0RF No Action hydrocodone-acetaminophen 5-325 mg tablet 1 tab PO Q6H PRN (Reason: pain) Qty: 14 0RF ondansetron 4 mg tablet,disintegrating 4 mg PO Q6H PRN (Reason: nausea and vomiting) Qty: 14 0RF Augmentin 500-125 mg tablet 1 tab PO BID Qty: 14 0RF hydrocodone-acetaminophen 5-325 mg tablet 1 tab PO Q6H PRN (Reason: pain) Qty: 14 0RF Discharge Orders: Discharge ED (Routine); Ordered 11/02/23 Ordered By: Rosalina Bullock Referrals: Dave Joseph MD [Physician] - 1-3 days Louise Mullen MD [Primary Care Provider] - Discharge Diet: Advance as tolerated Discharge Activity: Resume usual activity Patient Instructions: Abdominal Pain (ED) Coding Level of Care Code ED Educational Audiologist for Jaclyn Villaseñor
[2023-11-02 01:30] LABS: Basophils # 0.1 10^3/uL (0.0-0.1); Basophils % 1.3 %; Eosinophils % 0.7 %; Hematocrit 43.7 % (36-47); Lymphocytes # 2.1 10^3/uL (0.8-4.8); Lymphocytes % 37.9 %; Mean Corpuscular HGB Conc 32.5 g/dL (30-55); Mean Corpuscular Hemoglobin 29.7 pg (27-33); Mean Corpuscular Volume 91.4 fl (85-98); Mean Platelet Volume 10.5 fL (7.4-10.4); Monocytes # 0.4 10^3/uL (0.2-0.9); Monocytes % 7.4 %; Neutrophils # 2.85 10^3/uL (1.8-7.7); Neutrophils % 52.5 %; Nucleated Red Blood Cells % 0 %; Platelet Count 215 10^3/cmm (157-399); Red Blood Count 4.78 10^6/uL (3.85-5.65); Red Cell Distribution Width 12.5 % (12.1-15.1); White Blood Count 5.43 10^3/uL (3.29-11.43)
[2023-11-02 01:39] VITALS: RESP 16
[2023-11-02] MEDS: ondansetron 2 mg/ML SDV 2 mL 4 MG IVP (01:39)
[2023-11-02] MEDS: HYDROmorphone 1 mg/mL INJ 1 mL IVP (01:39)
[2023-11-02 01:47] LABS: Alanine Aminotransferase 26 U/L (0-33); Albumin Level 4.6 g/dL (3.5-5.2); Alkaline Phosphatase 64 U/L (35-105); Anion Gap 12.3 (5-19); Aspartate Amino Transferase 22 U/L (0-32); Blood Urea Nitrogen 16 mg/dL (6-20); Calcium 9.7 mg/dL (8.5-10.5); Carbon Dioxide 30 mmol/L (22-29); Chloride 102 mmol/L (98-107); Globulin 2.9 g/dL (1.3-4.6); Glomerular Filtration Rate 85.9 mL/min (90-130); Glucose 110 mg/dL (65-115); Lipase 55 U/L (13-60); Osmolality Calculated 292 mOsm/kg (285-295); Potassium 4.3 mmol/L (3.5-5.1); Sodium 140 mmol/L (136-145); Total Bilirubin 0.3 mg/dL (0.15-1.2); Total Protein 7.5 g/dL (6.6-8.7)
[2023-11-02 01:54] LABS: Bilirubin Urine Neg (Negative); Blood Urine Neg (Negative); Glucose Urine UA Norm (Normal); Ketones Urine 1+ (Negative); Nitrate Urine Negative (Negative); Protein Urine Neg (Negative); Specific Gravity, Urine 1.015 (1.005-1.030); Urine Appearance SL Hazy (CLEAR); Urine Color Yellow (Yellow); pH Urine 6 (5-7)
[2023-11-02 01:55] LABS: Add Urine Microscopic? YES; Bacteria Urine TRACE /hpf; Leukocyte Esterase Urine 1+ (Negative); RBC Urine 0-4 /hpf (0-2); Squamous Epithelial Cell Urine 0-4 /hpf (0-5); Urobilinogen Urine Norm (Negative)
[2023-11-02 02:41] VITALS: BP 129/79; PULSE 95; RESP 16; O2SAT 95
== END 2023-11-02 02:44 | disposition home or self-care (01) ==
PROVIDERS: Emergency Provider Emergency Medicine; PCP Family Medicine
DX: R10.84 Generalized abdominal pain (principal)
CPT/HCPCS: 80053; 81001; 83690; 85025; 96374; 96375; 99284; J1170; J2405

== ENCOUNTER 2024-01-08 07:51 | Day surgery (SDC) | payer MEDICARE, SELFPAY ==
[2024-01-08 08:04] VITALS: BMI 23.4
[2024-01-08 08:06] VITALS: BP 123/78; PULSE 79; RESP 18; TEMP 36.4; O2SAT 97
[2024-01-08] MEDS: sodium chloride 0.9% 1,000 ML 30 ML IV (08:15)
--- NOTE | 2024-01-08 08:16 | W.PM.OPSFHP ---
Same Day Surgery H&P Indication for Procedure/HPI DATE OF PROCEDURE: January 08, 2024 CHIEF COMPLAINT/INDICATIONFOR SURGICAL PROCEDURE: colitis PREOP DIAGNOSIS: colitis PLANNED PROCEDURE: Operation Date: 01/08/24 09:15 Proposed Procedures p [id number] -colonoscopy R10.9(Not Applicable) - Dave Joseph MD Medications/Allergies* Home Medications Medication Instructions Recorded Confirmed Type No Known Home Medications 01/06/24 01/06/24 History Allergies/Adverse Reactions Allergy/AdvReac Type Severity Reaction Status Date / Time doxycycline Allergy Unknown UNKNOWN Verified 10/28/23 08:56 levofloxacin [From Levaquin] Allergy Unknown UNKNOWN Verified 10/28/23 08:56 morphine Allergy Unknown UNKNOWN Verified 10/28/23 08:56 silk Allergy ALGY-Bliste Verified 10/28/23 08:56 r Current Medications: Generic Name Dose Route Start Last Admin Trade Name Freq PRN Reason Stop Dose Admin Sodium Chloride 1,000 mls @ 30 mls/hr 01/08/24 08:00 01/08/24 08:15 Sodium Chloride 0.9% IV 30 mls/hr .Q24H CHI Administration Pertinent History/Comorbid Conditions* Medical History (Updated 11/10/23 @ 00:00 by BASHIR Blanco) History of pulmonary embolus (PE) Surgical History (Updated 02/10/20 @ 09:21 by Heather Cazares MD) H/O hernia repair H/O: hysterectomy Family History (Updated 11/27/19 @ 11:10 by Duyen Arambula LPN) Diabetes Heart disease Cancer Social History Smoking and tobacco/nicotine status: never used tobacco/nicotine Second hand smoke exposure: No Alcohol intake: never Substance/Drug Use: never Do you think of yourself as: Straight/Heterosexual Current gender identity: Female Pertinent Exam Findings alert, oriented x 3 and clear to auscultation bilaterally Recommendations Surgery/Procedure today Coding Level of Care Code Acute Code for Chg Fwd
[2024-01-08 08:51] VITALS: BP 112/77; PULSE 68; RESP 18; TEMP 36.4; O2SAT 99
--- NOTE | 2024-01-08 09:02 | ANES.PREANE2 ---
Pre-Anesthetic Assessment Height/Weight: Height 1.52 m Weight 54.431 kg Temp Pulse Resp BP Pulse Ox O2 Del Method 97.6 F 68 18 112/77 99 Room Air 01/08/24 08:51 01/08/24 08:51 01/08/24 08:51 01/08/24 08:51 01/08/24 08:51 01/08/24 08:51 Preop Diagnosis: colitis Operation Date: 01/08/24 09:15 Proposed Procedures p [id number] -colonoscopy R10.9(Not Applicable) - Dave Joseph MD Was Beta Jana taken within 24 hours: N/A Was Clonidine taken within 24 hours: N/A Last intake: Intake Last Liquid Date 01/07/24 Last Liquid Time 22:00 Last Solid Date 01/06/24 Last Solid Time 16:00 Social No alcohol and No tobacco Exam alert and oriented x 3 Airway Submandibular: within normal limits Cervical ROM: within normal limits Mallampati: Class II History/ROS No significant history except as noted and No significant complaints CV/HEM Hx pE Anesthetic Plan ASA status: 2 Anesthesia: MAC Risk of > 500 ml blood loss (7ml/kg in children): No Medications/Allergies Home Medications Medication Instructions Recorded Confirmed Last Taken Type No Known Home Medications 01/06/24 01/06/24 Unknown History Allergies Allergy/AdvReac Type Severity Reaction Status Date / Time doxycycline Allergy Unknown UNKNOWN Verified 10/28/23 08:56 levofloxacin [From Levaquin] Allergy Unknown UNKNOWN Verified 10/28/23 08:56 morphine Allergy Unknown UNKNOWN Verified 10/28/23 08:56 silk Allergy ALGY-Bliste Verified 10/28/23 08:56 r Current Medications Generic Name Dose Route Start Last Admin Trade Name Freq PRN Reason Stop Dose Admin Sodium Chloride 1,000 mls @ 30 mls/hr 01/08/24 08:00 01/08/24 08:52 Sodium Chloride 0.9% IV Infused .Q24H [facility] In[facility] PFSH Anesthesia Medical History History of pulmonary embolus (PE) Surgical History H/O hernia repair H/O: hysterectomy Family History Other Cancer Diabetes Heart disease Social History Smoking and tobacco/nicotine status: never used tobacco/nicotine Second hand smoke exposure: No Alcohol intake: never Substance/Drug Use: never Do you think of yourself as: Straight/Heterosexual Current gender identity: Female Data Anesthesia Cardiac Studies: No Data to Display
[2024-01-08 09:05] VITALS: BP 123/77; PULSE 78; RESP 18; O2SAT 97
--- NOTE | 2024-01-08 20:12 | ANE.PACU2 ---
Inpatient post-anesthesia follow up: Airway intact: Yes Vital signs: Temperature 97.6 F Pulse Rate 78 Respiratory Rate 18 Blood Pressure 123/77 Pulse Oximetry 97 Oxygen Delivery Me thod Room Air Oxygen Flow Rate Fraction of Inspir ed Oxygen Hydration adequate: Yes Nausea and vomiting: No Pain level: 1 Mental status: Baseline
== END 2024-01-08 09:25 | disposition home or self-care (01) ==
PROVIDERS: PCP Family Medicine; Visit Provider Surgery
PROC: 0DJD8ZZ Inspection of Lower Intestinal Tract, Via Natural or Artificial Opening Endoscopic (ICD-10-PCS; CPT 45378; principal; 2024-01-08 09:15)
DX: R10.9 Unspecified abdominal pain (principal); K57.30 Diverticulosis of large intestine without perforation or abscess without bleeding; D12.8 Benign neoplasm of rectum; Z86.711 Personal history of pulmonary embolism
CPT/HCPCS: 45380; 88305; J7030

== ENCOUNTER → 2024-01-27 09:08 | Outpatient (BNVA) | payer MEDICARE, SELFPAY | PROVIDERS: PCP Family Medicine; Visit Provider Surgery | DX: Z09 Encounter for follow-up examination after completed treatment for conditions other than malignant neoplasm (principal) | CPT/HCPCS: 99213 ==

== ENCOUNTER 2024-02-05 07:20 | Emergency (ER) | payer MEDICARE, SELFPAY ==
[2024-02-05 07:25] VITALS: BP 129/89; PULSE 104; RESP 18; TEMP 37.3; O2SAT 96; BMI 19.9
[2024-02-05 07:37] VITALS: BP 129/89; PULSE 101; O2SAT 96
--- NOTE | 2024-02-05 07:49 | PC.PHAR ---
pt states she takes no prescription or otc medications
--- NOTE | 2024-02-05 07:56 | XR_ITS ---
WS: [id number] Examination: XR chest 1V portable [id number] Reason for Exam: dyspnea/cough Date: February 05, 2024 Comparison: None. Findings: The cardiomediastinal silhouette is within normal limits. There is no pulmonary edema or pleural effusion. There is no dense consolidation Surgical clips in the right upper quadrant are noted. Impression: No acute lung process is seen.
--- NOTE | 2024-02-05 08:16 | ED_ITS ---
HPI - Headache 2 General: Chief Complaint: Headache Stated Complaint: headache, neck pain, fever Time Seen by Provider: 02/05/24 07:38 Source: patient Mode of arrival: ambulatory History of Present Illness: 50-year-old female presents emergency ro om with complaint of fever and neck pain cough. Denies chest pain cough has been nonproductive. She has a low-grade temp on arrival here temp of 99 1. She had a headache associated with this as well no diarrhea. She has a history of previous PE. She does not not have any hemoptysis at this time. She was seen in urgent care clinic yesterday and started on Augmentin. MD elicited complaint: headache Location: frontal Quality & Timing: sharp Exacerbating factors: none Relieving factors: nothing Associated symptoms: Reports cough, fever(s) and weakness; Deny chest pain, confusion, diaphoresis, eye pain, eye redness, lightheadedness, loss of vision, malaise, nausea, neck stiffness, numbness, paresthesias, photophobia, pre-syncope, rash, seizures, short of breath, sound sensitivity, syncope or vomiting Review of Systems 2 Const: Reports: fever(s); Denies: chills, malaise or diaphoresis Card: Denies: chest pain, lightheadedness, syncope or pre-syncope Resp: Denies: dyspnea GI: Denies: abdominal pain, nausea or vomiting : Denies: dysuria, urinary frequency or urinary urgency Musc: Denies: neck pain or back pain Skin/Breast: Denies: rash Neuro: Denies: confusion PFSH ED 2 PFSH: Medical History History of pulmonary embolus (PE) Surgical History H/O hernia repair H/O: hysterectomy Family History Other Cancer Diabetes Heart disease Social History Smoking and tobacco/nicotine status: never used tobacco/nicotine Second hand smoke exposure: No Alcohol intake: never Substance/Drug Use: never Do you think of yourself as: Straight/Heterosexual Current gender identity: Female Physical Exam 2 Const: GENERAL APPEARANCE: cooperative and comfortable O RIENTATION/CONSCIOUSNESS: Yes awake, Yes oriented to person, Yes oriented to place and Yes oriented to time HENMT: COMMON NORMALS: normocephalic, atraumatic and hearing grossly normal bilaterally HEAD & SCALP: normocephalic and atraumatic Eye: DIRECT OPHTHALMOSCOPY: No photophobia Neck/C-Spine: OTHER: Patient complains of pain in her neck with flexion and extension however she flexes her neck to sit up without any difficulty. No cervical lymphadenopathy noted Resp: COMMON NORMALS: normal respiratory effort, No retractions, No use of accessory muscles and clear to auscultation bilaterally AUSCULTATION: clear to auscultation bilaterally Cardio: COMMON NORMALS: regular rate, regular rhythm and No murmurs present (Cardio) RATE: regular rate RHYTHM: regular rhythm GI: COMMON NORMALS: Soft to palpation and No hepatosplenomegaly present A USCULTATION: Yes normoactive bowel sounds PALPATION: Yes Soft to palpation, No Tenderness to palpation present (GI), No Guarding due to palpation present (GI) and Yes No hepatosplenomegaly present Extremity: COMMON NORMALS: normal to inspection, capillary refill normal, no clubbing, cyanosis or edema, no calf tenderness and no pedal edema Neuro: SENSORIUM/ORIENTATION: Yes oriented to person, Yes oriented to place and Yes oriented to time Skin: COMMON NORMALS: no rashes or lesions noted GENERAL SKIN EXAM: no rashes or lesions noted Course 2 Vital Signs: Vital signs: Vital Signs Temperature 99.1 F 02/05/24 11:08 Pulse Rate 97 02/05/24 11:08 Respiratory Rate 18 02/05/24 11:08 Blood Pressure 129/89 02/05/24 11:08 Pulse Oximetry 97 02/05/24 11:08 Oxygen Delivery Me thod Room Air 02/05/24 10:28 MDM - Headache Medical Decision Making Symptoms improved. She does not have any meningeal signs. Her symptoms of labor caused by the note human metapneumovirus. Supportive cares follow-up as needed Lab Data 02/05/24 08:19 02/05/24 08:19 Laboratory Results WBC 5.95 10^3/uL (3.29-11.43) 02/05/24 08:19 RBC 5.13 10^6/uL (3.85-5.65) 02/05/24 08:19 Hgb 15.10 g/dL (11.27-16.99) 02/05/24 08:19 Hct 46.5 % (36-47) 02/05/24 08:19 MCV 90.6 fl (85-98) 02/05/24 08:19 MCH 29.4 pg (27-33) 02/05/24 08:19 MCHC 32.5 g/dL (30-55) 02/05/24 08:19 RDW 12.5 % (12.1-15.1) 02/05/24 08:19 Plt Count 211 10^3/cmm (157-399) 02/05/24 08:19 MPV 10.9 fL (7.4-10.4) H 02/05/24 08:19 Neut % (Auto) 85.9 % 02/05/24 08:19 Lymph % (Auto) 6.1 % 02/05/24 08:19 [place] % (Auto) 6.2 % 02/05/24 08:19 Eos % (Auto) 0.5 % 02/05/24 08:19 Baso % (Auto) 0.8 % 02/05/24 08:19 Neut # (Auto) 5.11 10^3/uL (1.8-7.7) 02/05/24 08:19 Lymph # (Auto) 0.4 10^3/uL (0.8-4.8) L 02/05/24 08:19 [place] # (Auto) 0.4 10^3/uL (0.2-0.9) 02/05/24 08:19 Eos # (Auto) 0.0 10^3/uL (0.0-0.8) 02/05/24 08:19 Baso # (Auto) 0.1 10^3/uL (0.0-0.1) 02/05/24 08:19 Nucleated RBC % (auto) 0 % 02/05/24 08:19 Nucleated RBCs # 0.0 /100WBC 02/05/24 08:19 Sodium 139 mmol/L (136-145) 02/05/24 08:19 Potassium 4.4 mmol/L (3.5-5.1) 02/05/24 08:19 Chloride 99 mmol/L (98-107) 02/05/24 08:19 Carbon Dioxide 27 mmol/L (22-29) 02/05/24 08:19 Anion Gap 17.4 (5-19) 02/05/24 08:19 BUN 9 mg/dL (6-20) 02/05/24 08:19 Creatinine 0.7 mg/dL (0.5-0.9) 02/05/24 08:19 GFR Calculation 85.9 mL/min (90-130) L 02/05/24 08:19 Glucose 122 mg/dL (65-115) H 02/05/24 08:19 Calculated Osmolality 288 mOsm/kg (285-295) 02/05/24 08:19 Calcium 9.6 mg/dL (8.5-10.5) 02/05/24 08:19 Total Bilirubin 0.5 mg/dL (0.15-1.2) 02/05/24 08:19 AST 45 U/L (0-32) H 02/05/24 08:19 ALT 44 U/L (0-33) H 02/05/24 08:19 Alkaline Phosphatase 85 U/L (35-105) 02/05/24 08:19 Total Protein 8.1 g/dL (6.6-8.7) 02/05/24 08:19 Albumin 5.0 g/dL (3.5-5.2) 02/05/24 08:19 Globulin 3.1 g/dL (1.3-4.6) 02/05/24 08:19 Urine Color Yellow (Yellow) 02/05/24 08:19 Urine Appearance Cloudy (CLEAR) A 02/05/24 08:19 Urine pH 8 (5-7) H 02/05/24 08:19 Ur Specific [place] 1.020 (1.005-1.030) 02/05/24 08:19 Urine Protein Neg (Negative) 02/05/24 08:19 Urine Glucose (UA) Norm (Normal) 02/05/24 08:19 Urine Ketones Negative (Negative) 02/05/24 08:19 Urine Blood Neg (Negative) 02/05/24 08:19 Urine Nitrate Negative (Negative) 02/05/24 08:19 Urine Bilirubin Neg (Negative) 02/05/24 08:19 Prot Sulfosalicylic Acd Negative (Negative) 02/05/24 08:19 Urine Urobilinogen Neg mg/dL (Negative) 02/05/24 08:19 Ur Leukocyte Esterase Negative (Negative) 02/05/24 08:19 Urine RBC Rare /hpf (0-2) 02/05/24 08:19 Urine WBC Rare /hpf (0-5) 02/05/24 08:19 Ur Squamous Epith Cells 0-4 /hpf (0-5) H 02/05/24 08:19 Amorphous Sediment 3+ /hpf 02/05/24 08:19 Urine Bacteria Trace /hpf (NONE) 02/05/24 08:19 Urine Mucus Trace /hpf 02/05/24 08:19 Coronavirus 229E (PCR) Not detected (NOT DETECT) 02/05/24 08:19 Human Metapneumovir PCR Detected (NOT DETECT) A 02/05/24 10:39 Influenza Type A Ag negative (Negative) 02/05/24 08:19 Influenza Type B Ag negative (Negative) 02/05/24 08:19 Entero/Rhino (PCR) Not detected (NOT DETECT) 02/05/24 10:39 SARS-CoV-2 (PCR) Not detected (NOT DETECT) 02/05/24 08:19 All radiology interpretation(s) finalized by discharge Discharge Plan Discharge Patient Disposition: Home Clinical Impression: Acute viral syndrome, Infection due to human metapneumovirus (hMPV) Condition: Stable Prescriptions: No Action No Known Home Medications Discharge Orders: Discharge ED (Routine); Ordered 02/05/24 Ordered By: Jorge Siu Referrals: Louise Mullen MD [Primary Care Provider] - Discharge Diet: Usual diet Discharge Activity: Increase activity as tolerated Patient Instructions: Viral Syndrome (ED), Opioid Safety, Pain Management Activity Restrictions/Additional Instructions: Thank you for choosing [facility] for your healthcare needs today. Please realize this is an emergency room and that we are providing you with a medical screening exam and this may not be complete and all inclusive of all the testing and or work up that you may need to determine your ailment or severity of your illness. It is very important that you follow up as instructed or that you return to the Emergency Department should you have concerns or if your condition changes or worsens in any way. You are seen today with low-grade fever complaints of neck pain and headache. Your white count was normal respiratory panel showed human [place] pneumo virus. This is likely the cause of your symptoms. Supportive cares follow-up as needed Coding Level of Care Code ED Photo Graphics Librarian for Jaclyn Villaseñor
[2024-02-05] MEDS: sodium chloride 0.9% 1,000 ML 999 ML IV (08:29)
[2024-02-05 08:31] LABS: Basophils # 0.1 10^3/uL (0.0-0.1); Basophils % 0.8 %; Eosinophils % 0.5 %; Hematocrit 46.5 % (36-47); Lymphocytes # 0.4 10^3/uL (0.8-4.8); Lymphocytes % 6.1 %; Mean Corpuscular HGB Conc 32.5 g/dL (30-55); Mean Corpuscular Hemoglobin 29.4 pg (27-33); Mean Corpuscular Volume 90.6 fl (85-98); Mean Platelet Volume 10.9 fL (7.4-10.4); Monocytes # 0.4 10^3/uL (0.2-0.9); Monocytes % 6.2 %; Neutrophils # 5.11 10^3/uL (1.8-7.7); Neutrophils % 85.9 %; Nucleated Red Blood Cells % 0 %; Platelet Count 211 10^3/cmm (157-399); Red Blood Count 5.13 10^6/uL (3.85-5.65); Red Cell Distribution Width 12.5 % (12.1-15.1); White Blood Count 5.95 10^3/uL (3.29-11.43)
[2024-02-05 08:49] LABS: Alanine Aminotransferase 44 U/L (0-33); Alkaline Phosphatase 85 U/L (35-105); Anion Gap 17.4 (5-19); Aspartate Amino Transferase 45 U/L (0-32); Blood Urea Nitrogen 9 mg/dL (6-20); Calcium 9.6 mg/dL (8.5-10.5); Carbon Dioxide 27 mmol/L (22-29); Chloride 99 mmol/L (98-107); Creatinine Clr Calc Pharmacy 63.3473; Globulin 3.1 g/dL (1.3-4.6); Glomerular Filtration Rate 85.9 mL/min (90-130); Glucose 122 mg/dL (65-115); Osmolality Calculated 288 mOsm/kg (285-295); Potassium 4.4 mmol/L (3.5-5.1); Sodium 139 mmol/L (136-145); Total Bilirubin 0.5 mg/dL (0.15-1.2); Total Protein 8.1 g/dL (6.6-8.7)
[2024-02-05 09:04] LABS: Add Urine Culture? No; Add Urine Microscopic? YES; Amorphous Sediment Urine 3+ /hpf; Bacteria Urine TRACE /hpf; Bilirubin Urine Neg (Negative); Blood Urine Neg (Negative); Glucose Urine UA Norm (Normal); Ketones Urine Negative (Negative); Leukocyte Esterase Urine Negative (Negative); Mucus Urine TRACE /hpf; Nitrate Urine Negative (Negative); Protein Urine Neg (Negative); RBC Urine RARE /hpf (0-2); Squamous Epithelial Cell Urine 0-4 /hpf (0-5); Sulfosalicylic Acid Urine Negative (Negative); Urine Appearance Cloudy (CLEAR); Urine Color Yellow (Yellow); Urobilinogen Urine Neg (Negative); WBC Urine RARE /hpf (0-5); pH Urine 8 (5-7)
[2024-02-05 09:06] LABS: Influenza A by IFA negative (Negative); Influenza B by IFA negative (Negative)
[2024-02-05 09:27] VITALS: BP 129/89; PULSE 92; O2SAT 98
[2024-02-05] MEDS: ketorolac 30 mg/mL INJ IVP (10:26)
[2024-02-05 10:28] VITALS: BP 129/89; PULSE 97; O2SAT 97
[2024-02-05 10:28] LABS: Adenovirus Not Detected (NOT DETECT); Chlamydia Pneumoniae Not Detected (NOT DETECT); Coronavirus 229E,HKU1,NL63,OC4 Not Detected (NOT DETECT); Human Metapneumovirus Detected (NOT DETECT); Human Rhinovirus/Enterovirus Not Detected (NOT DETECT); Influenza A Not Detected (NOT DETECT); Influenza A H1 Not Detected (NOT DETECT); Influenza A H1-2009 Not Detected (NOT DETECT); Influenza A H3 Not Detected (NOT DETECT); Influenza B Not Detected (NOT DETECT); Mycoplasma Pneumoniae Not Detected (NOT DETECT); Parainfluenza Virus Type 1 Not Detected (NOT DETECT); Parainfluenza Virus Type 2 Not Detected (NOT DETECT); Parainfluenza Virus Type 3 Not Detected (NOT DETECT); Parainfluenza Virus Type 4 Not Detected (NOT DETECT); Respiratory Syncytial Virus A Not Detected (NOT DETECT); Respiratory Syncytial Virus B Not Detected (NOT DETECT); SARS-COV-2 Not Detected (NOT DETECT)
[2024-02-05 10:39] LABS: Human Metapneumovirus Detected (NOT DETECT); Human Rhinovirus/Enterovirus Not Detected (NOT DETECT); Results from Genmark
[2024-02-05 11:08] VITALS: BP 129/89; PULSE 97; RESP 18; TEMP 37.3; O2SAT 97
== END 2024-02-05 11:10 | disposition home or self-care (01) ==
PROVIDERS: Emergency Provider Family Medicine; PCP Family Medicine
DX: B33.8 Other specified viral diseases (principal); B97.81 Human metapneumovirus as the cause of diseases classified elsewhere; Z11.52 Encounter for screening for COVID-19
CPT/HCPCS: 71045; 80053; 81001; 85025; 87635; 87801; 87804; 96361; 96374; 99284; J1885; J7030

== ENCOUNTER → 2024-07-14 09:17 | Outpatient (BNVA) | payer MEDICARE, SELFPAY | PROVIDERS: PCP Family Medicine; Visit Provider Nurse Practitioner | DX: R30.0 Dysuria (principal) | CPT/HCPCS: 81000; 87086 ==

== ENCOUNTER 2024-08-28 16:02 | Emergency (ER) | payer MEDICARE, SELFPAY ==
[2024-08-28 16:29] VITALS: BP 144/86; PULSE 92; RESP 16; TEMP 36.7; O2SAT 98; BMI 23.4
--- NOTE | 2024-08-28 17:14 | CTR_ITS ---
PROCEDURE INFORMATION: Exam: CT Thoracic Spine Without Contrast Exam date and time: 08/28/2024 5:42 PM Age: 59 years old Clinical indication: Injury or trauma; Fall; Blunt trauma (contusions or hematomas); Patient HX: Patient fell off of horse onto rocks on the ground. Focal C/O of low back and RT hip pain. ; Additional info: Fall from horse, pain TECHNIQUE: Imaging protocol: Computed tomography of the thoracic spine without contrast. Radiation optimization: All CT scans at this facility use at least one of these dose optimization techniques: automated exposure control; mA and/or kV adjustment per patient size (includes targeted exams where dose is matched to clinical indication); or iterative reconstruction. COMPARISON: CT thoracic spin wo con* [id number] 03/15/2021 12:03 AM RADIATION DOSE METRICS: Total DLP (mGy-cm): 421.5 FINDINGS: Bones/joints: No acute fracture. Normal alignment. No significant disc bulge or herniation. No severe spinal canal stenosis. No significant neural foraminal narrowing. Apparent fracture of the left transverse process of L1 seen on (series 8, image 25) is not seen on the axial or sagittal views and thought therefore likely to be artifactual. Soft tissues: Unremarkable. CT/CT thoracic spin wo con* [id number] IMPRESSION: Unremarkable thoracic CT Spine.
--- NOTE | 2024-08-28 17:14 | CTR_ITS ---
PROCEDURE INFORMATION: Exam: CT Head Without Contrast Exam date and time: 08/28/2024 5:38 PM Age: 59 years old Clinical indication: Injury or trauma; Fall; Blunt trauma (contusions or hematomas); Patient HX: Patient fell off of horse onto rocks on the ground. Focal C/O of low back and RT hip pain. ; Additional info: Fall from horse, pain TECHNIQUE: Imaging protocol: Computed tomography of the head without contrast. Radiation optimization: All CT scans at this facility use at least one of these dose optimization techniques: automated exposure control; mA and/or kV adjustment per patient size (includes targeted exams where dose is matched to clinical indication); or iterative reconstruction. COMPARISON: CT head wo con* [id number] 03/14/2021 11:58 PM RADIATION DOSE METRICS: Total DLP (mGy-cm): 1023.5 FINDINGS: Brain: Normal. No hemorrhage. Unremarkable white matter. No mass effect. Cerebral ventricles: No ventriculomegaly. Paranasal sinuses: Visualized sinuses are unremarkable. No fluid levels. Mastoid air cells: Visualized mastoid air cells are well aerated. Bones: Unremarkable. No acute fracture. Soft tissues: Unremarkable. CT/CT head wo con* [id number] IMPRESSION: No intracranial posttraumatic changes.
--- NOTE | 2024-08-28 17:14 | CTR_ITS ---
PROCEDURE INFORMATION: Exam: CT Cervical Spine Without Contrast Exam date and time: 08/28/2024 5:38 PM Age: 59 years old Clinical indication: Injury or trauma; Fall; Blunt trauma; Patient HX: Patient fell off of horse onto rocks on the ground. Focal C/O of low back and RT hip pain. ; Additional info: Fall from horse, pain TECHNIQUE: Imaging protocol: Computed tomography of the cervical spine without contrast. Radiation optimization: All CT scans at this facility use at least one of these dose optimization techniques: automated exposure control; mA and/or kV adjustment per patient size (includes targeted exams where dose is matched to clinical indication); or iterative reconstruction. COMPARISON: CT cervical spin wo con* [id number] 03/15/2021 12:00 AM RADIATION DOSE METRICS: Total DLP (mGy-cm): 957.9 FINDINGS: Bones: Mild anterolisthesis at C4-C5. Posterior osteophyte disc complex at C5-C6 with mild bony canal stenosis. Mild degenerative disease of the anterior C1-C2 articulation. No acute fracture. No compression deformity. Lungs: Lung apices are normal. Vasculature: Bilateral carotid calcifications. Soft tissues: Unremarkable. CT/CT cervical spin wo con* [id number] IMPRESSION: No acute posttraumatic changes.
--- NOTE | 2024-08-28 17:14 | CTR_ITS ---
PROCEDURE INFORMATION: Exam: CT Lumbar Spine Without Contrast Exam date and time: 08/28/2024 5:42 PM Age: 59 years old Clinical indication: Injury or trauma; Fall; Blunt trauma (contusions or hematomas); Patient HX: Patient fell off of horse onto rocks on the ground. Focal C/O of low back and RT hip pain. ; Additional info: Fall from horse, pain TECHNIQUE: Imaging protocol: Computed tomography of the lumbar spine without contrast. Radiation optimization: All CT scans at this facility use at least one of these dose optimization techniques: automated exposure control; mA and/or kV adjustment per patient size (includes targeted exams where dose is matched to clinical indication); or iterative reconstruction. COMPARISON: CT lumbar spine wo con* [id number] 03/15/2021 12:05 AM RADIATION DOSE METRICS: Total DLP (mGy-cm): 404.4 FINDINGS: Bones/joints: No acute fracture. Normal alignment. No significant disc bulge or herniation. No severe spinal canal stenosis. No significant neural foraminal narrowing. Soft tissues: Unremarkable. CT/CT lumbar spine wo con* [id number] IMPRESSION: No acute findings.
--- NOTE | 2024-08-28 17:15 | CTR_ITS ---
PROCEDURE INFORMATION: Exam: CT Abdomen And Pelvis Without Contrast Exam date and time: 08/28/2024 5:42 PM Age: 59 years old Clinical indication: Injury or trauma; Fall; Blunt; Generalized; Prior surgery; Surgery date: 6+ months; Surgery type: Hernia repair. Hysterectomy. Gb; Patient HX: Patient fell off of horse onto rocks on the ground. Focal C/O of low back and RT hip pain. ; Additional info: Unspecified abdominal pain. Fall from horse, pain TECHNIQUE: Imaging protocol: Computed tomography of the abdomen and pelvis without contrast. Radiation optimization: All CT scans at this facility use at least one of these dose optimization techniques: automated exposure control; mA and/or kV adjustment per patient size (includes targeted exams where dose is matched to clinical indication); or iterative reconstruction. COMPARISON: CT abdomen pelvis w con* [id number] 10/15/2023 2:53 PM RADIATION DOSE METRICS: Total DLP (mGy-cm): 420.3 FINDINGS: Liver: Normal. No mass. Gallbladder and biliary ducts: The gallbladder is absent. Pancreas: Normal. No ductal dilation. Spleen: Normal. No splenomegaly. Adrenal glands: Normal. No mass. Kidneys and ureters: Normal. No hydronephrosis. Stomach and bowel: Unremarkable. No obstruction. No mucosal thickening. Appendix: No evidence of appendicitis. Intraperitoneal space: Unremarkable. No free air. No significant fluid collection. Vasculature: Unremarkable. No abdominal aortic aneurysm. Lymph nodes: Unremarkable. No enlarged lymph nodes. Urinary bladder: Unremarkable as visualized. Reproductive: Unremarkable as visualized. Bones/joints: Unremarkable. No acute fracture. Soft tissues: Unremarkable. CT/CT abdomen pelvis con [id number] IMPRESSION: 1. No solid organ injury in the abdomen or pelvis. 2. No secondary signs of bowel injury. No free air or significant free fluid in the abdomen or pelvis. 3. No fractures.
--- NOTE | 2024-08-28 17:16 | ED_ITS ---
HPI - Back Pain/Injury 2 General: Chief Complaint: Back Pain/Injury Stated Complaint: Back injury Time Seen by Provider: 08/28/24 16:46 History of Present Illness: Diana Benavidez is a 59-year-old female that presents to the emergency department with complaints of lumbar and pelvic pain. Patient reports that she was thrown from a horse landing on rocks at 1200 today. She states that she was attempting to jump a ravine when the horse bucked her off. She felt approximately 6 feet onto the [place] ground. She has pinpoint tenderness to the lower lumbar spine. She reports extreme back pain. The event occurred in [place]. She was able to get back on the horse and ride out of the [place] and back to the vehicle. Is taken till now to get to the emergency department. Patient reports that she did strike her head but she had no loss of consciousness. She does not take any anticoagulation/antiplatelet therapies. She denies new neck pain, thoracic pain Denies chest wall or abdominal pain. Her pain in the low back radiates into the buttock and lateral hip and down the lateral aspects of the right lower extremity Associated symptoms: Deny abdominal pain, chills, difficulty walking, dysuria, fatigue, fever(s), hematuria, nausea, urinary urgency or vomiting Related Data Previous Rx's Medication Instructions Recorded nystatin 100,000 unit/mL oral 400,000 unit (4 mL) PO QID 10 days 03/06/24 suspension #160 mL cephalexin 500 mg capsule 500 mg PO TID #9 caps 07/14/24 phenazopyridine 200 mg tablet 200 mg PO TID 6 doses #6 tabs 07/14/24 (Pyridium) Allergies Allergy/AdvReac Type Severity Reaction Status Date / Time doxycycline Allergy Unknown UNKNOWN Verified 08/28/24 16:29 levofloxacin [From Levaquin] Allergy Unknown UNKNOWN Verified 08/28/24 16:29 morphine Allergy Unknown UNKNOWN Verified 08/28/24 16:29 silk Allergy ALGY-Bliste Verified 08/28/24 16:29 r Review of Systems 2 General: Reports: 10 or more systems reviewed and unremarkable except in HPI and below Const: Denies: fever(s), chills, change in appetite, change in weight, fatigue or malaise Eyes: Denies: change in vision, eye discomfort, eye discharge or eye redness ENMT: Denies: throat pain, enlarged tonsils, odynophagia, hoarseness, ear or mastoid pain, ear discharge, change in hearing, tinnitus, nasal discharge, nasal congestion, post nasal drip or sinus pain Card: Denies: chest pain, palpitations, irregular heart rhythm, edema, dyspnea on exertion, orthopnea or leg pain with exertion Resp: Denies: dyspnea, productive cough, non-productive cough, wheezing, stridor or chest congestion GI: Denies: abdominal pain, nausea, vomiting, dysphagia, diarrhea, constipation, bloating, GI cramping or hematochezia : Denies: flank pain, difficulty voiding, dysuria, urinary frequency, urinary urgency, urinary hesitancy, oliguria or hematuria Musc: Reports: neck pain, back pain, extremity pain, joint pain and joint swelling; Denies: joint redness, joint warmth or muscle weakness Skin/Breast: Denies: rash, pruritus, erythema, photosensitivity or new lesions Neuro: Denies: headache(s), numbness in extremities, weakness in extremities, sensory changes, lack of coordination, difficulty walking, frequent falls, dizziness, confusion, Slurred speech present, difficulty communicating thoughts, seizure-like activity or involuntary movements Endo: Denies: polyuria, polydipsia or tired all the time Terrance/Lymph: Denies: easy bruising or easy bleeding PFSH ED 2 PFSH: Medical History History of pulmonary embolus (PE) Surgical History H/O hernia repair H/O: hysterectomy Family History Other Cancer Diabetes Heart disease Social History Smoking and tobacco/nicotine status: never used tobacco/nicotine Second hand smoke exposure: No Alcohol intake: never Substance/Drug Use: never Do you think of yourself as: Straight/Heterosexual Current gender identity: Female Physical Exam 2 Narrative: EXAM NARRATIVE: Well appearing and no acute distress. Const: COMMON NORMALS: patient oriented x3 and alert GENERAL APPEARANCE: c omfortable and well kempt HENMT: COMMON NORMALS: normocephalic HEAD & SCALP: normocephalic Neck/C-Spine: COMMON NORMALS: no meningeal signs Resp: COMMON NORMALS: normal respiratory effort and clear to auscultation bilaterally AUSCULTATION: clear to auscultation bilaterally Cardio: COMMON NORMALS: regular rate RATE: regular rate GI: COMMON NORMALS: Soft to palpation PALPATION: Yes Soft to palpation Back/Pelvis: BACK IMAGE (FEMALE): 1. Right-sided lower lumbar tenderness, ecchymosis. Pain radiates into the buttock and down the lateral aspect of the right lower extremity 2. Midline sacral pain. When she sits h er glutes become numb Neuro: COMMON NORMALS: patient oriented x3 SENSORIUM/ORIENTATION: Yes alert MENINGEAL SIGNS: Yes no meningeal signs Psych: COMMON NORMALS: cooperative and speech normal APPEARANCE: Yes well kempt SPEECH: Yes normal speech Skin: COMMON NORMALS: turgor normal GENERAL SKIN EXAM: turgor normal Course 2 Vital Signs: Vital signs: Vital Signs Temperature 98.1 F 08/28/24 16:29 Pulse Rate 73 08/28/24 18:35 Respiratory Rate 16 08/28/24 19:09 Blood Pressure 117/74 08/28/24 18:35 Pulse Oximetry 96 08/28/24 19:09 Oxygen Delivery Me thod Room Air 08/28/24 18:35 MDM - Back Pain/Injury Medical Decision Making Patient was evaluated in the emergency department today for complaints of lumbar and pelvic pain after being thrown from a horse. She underwent CT imaging that included CT head, CT cervical spine, thoracic spine, lumbar spine. Patient also received a CT abdomen and pelvis. Patient had an IV started, labs were drawn and her pain was treated with Dilaudid and Zofran. Laboratory studies were unremarkable. Pain was well-managed with ordered medications CT head negative for acute intracranial process CT cervical spine reveals no acute fractures but there is degenerative changes including multilevel degenerative disc disease with disc osteophyte formation and anterolisthesis of C4 and C5. CT thoracic and lumbar spine unremarkable CT abdomen and pelvis reveals no intra-abdominal or pelvic injuries. Patient and I reviewed all of her diagnostic tests. We reviewed ongoing management of her complaints. I have advised her that she should follow-up with primary care doctor this week for recheck of todays symptoms. Symptom management with Tylenol, ibuprofen, other [id number] pain medications, plenty of rest and lots of fluids. Dr. Ahumada's name was provided to the patient for her chronic cervical complaints and CT findings. At this time no further diagnostics are warranted. All questions answered Labs 08/28/24 17:35 08/28/24 17:35 Radiology Impressions Cervical Spine CT 08/28/24 17:14 IMPRESSION: No acute posttraumatic changes. Head CT 08/28/24 17:14 IMPRESSION: No intracranial posttraumatic changes. Lumbar Spine CT 08/28/24 17:14 IMPRESSION: No acute findings. Thoracic Spine CT 08/28/24 17:14 IMPRESSION: Unremarkable thoracic CT Spine. Abdomen/Pelvis CT 08/28/24 17:15 IMPRESSION: 1. No solid organ injury in the abdomen or pelvis. 2. No secondary signs of bowel injury. No free air or significant free fluid in the abdomen or pelvis. 3. No fractures. Laboratory Results WBC 9.68 10^3/uL (3.29-11.43) 08/28/24 17:35 RBC 4.87 10^6/uL (3.85-5.65) 08/28/24 17:35 Hgb 14.10 g/dL (11.27-16.99) 08/28/24 17:35 Hct 44.5 % (36-47) 08/28/24 17:35 MCV 91.4 fl (85-98) 08/28/24 17:35 MCH 29.0 pg (27-33) 08/28/24 17:35 MCHC 31.7 g/dL (30-55) 08/28/24 17:35 RDW 12.7 % (12.1-15.1) 08/28/24 17:35 Plt Count 264 10^3/cmm (157-399) 08/28/24 17:35 MPV 10.4 fL (7.4-10.4) 08/28/24 17:35 Neut % (Auto) 73.5 % 08/28/24 17:35 Lymph % (Auto) 18.2 % 08/28/24 17:35 [place] % (Auto) 7.3 % 08/28/24 17:35 Eos % (Auto) 0.2 % 08/28/24 17:35 Baso % (Auto) 0.6 % 08/28/24 17:35 Neut # (Auto) 7.11 10^3/uL (1.8-7.7) 08/28/24 17:35 Lymph # (Auto) 1.8 10^3/uL (0.8-4.8) 08/28/24 17:35 [place] # (Auto) 0.7 10^3/uL (0.2-0.9) 08/28/24 17:35 Eos # (Auto) 0.0 10^3/uL (0.0-0.8) 08/28/24 17:35 Baso # (Auto) 0.1 10^3/uL (0.0-0.1) 08/28/24 17:35 Nucleated RBC % (auto) 0 % 08/28/24 17:35 Nucleated RBCs # 0.0 /100WBC 08/28/24 17:35 Sodium 140 mmol/L (136-145) 08/28/24 17:35 Potassium 4.0 mmol/L (3.5-5.1) 08/28/24 17:35 Chloride 102 mmol/L (98-107) 08/28/24 17:35 Carbon Dioxide 29 mmol/L (22-29) 08/28/24 17:35 Anion Gap 13.0 (5-19) 08/28/24 17:35 BUN 16 mg/dL (6-20) 08/28/24 17:35 Creatinine 0.7 mg/dL (0.5-0.9) 08/28/24 17:35 GFR Calculation 85.6 mL/min (90-130) L 08/28/24 17:35 Glucose 84 mg/dL (65-115) 08/28/24 17:35 Calculated Osmolality 290 mOsm/kg (285-295) 08/28/24 17:35 Calcium 9.6 mg/dL (8.5-10.5) 08/28/24 17:35 Urine Color Yellow (Yellow) 08/28/24 17:40 Urine Appearance Clear (CLEAR) 08/28/24 17:40 Urine pH 6.5 (5-7) 08/28/24 17:40 Ur Specific [place] 1.005 (1.005-1.030) 08/28/24 17:40 Urine Protein Negative (Negative) 08/28/24 17:40 Urine Glucose (UA) Negative (Normal) 08/28/24 17:40 Urine Ketones Negative (Negative) 08/28/24 17:40 Urine Blood Negative (Negative) 08/28/24 17:40 Urine Nitrate Negative (Negative) 08/28/24 17:40 Urine Bilirubin Negative (Negative) 08/28/24 17:40 Urine Urobilinogen 0.2 mg/dL (Negative) 08/28/24 17:40 Ur Leukocyte Esterase Negative (Negative) 08/28/24 17:40 Urine RBC 0-4 /hpf (0-2) H 08/28/24 17:40 Urine WBC 0-4 /hpf (0-5) H 08/28/24 17:40 Ur Squamous Epith Cells 0-4 /hpf (0-5) H 08/28/24 17:40 Amorphous Sediment Not Reportable 08/28/24 17:40 Urine Bacteria 1+ /hpf (NONE) H 08/28/24 17:40 All radiology interpretation(s) finalized by discharge Discharge Plan Discharge Patient Disposition: Home Clinical Impression: Lumbar radiculopathy, Acute lumbar back pain, Back contusion, Chronic neck pain Condition: Stable Prescriptions: No Action nystatin 100,000 unit/mL suspension 400,000 unit PO QID 10 Days Qty: 160 0RF Rx Instructions: swish and spit cephalexin 500 mg capsule 500 mg PO TID Qty: 9 0RF phenazopyridine [Pyridium] 200 mg tablet 200 mg PO TID Qty: 6 0RF Discharge Orders: Discharge ED (Routine); Ordered 08/28/24 Ordered By: Wero Olmos [facility] [place]: Claudy Ahumada DO [Physician] - Louise Mullen MD [Primary Care Provider] - Discharge Diet: Advance as tolerated Discharge Activity: Resume usual activity Patient Instructions: Contusion, Low Back Strain (ED), Acute Low Back Pain (ED), Lumbar Radiculopathy (ED), Lower Back Exercises (ED), Pain Management Activity Restrictions/Additional Instructions: Please follow-up with your primary care doctor for recheck of todays complaints Use Tylenol and ibuprofen as needed for pain and inflammation or swelling. You can also consider lidocaine patches, magnesium fall?theraworks, Voltaren?topical NSAID. Get rest and plenty of fluids. With regards to the cervical findings on the CT. You do have some chronic degenerative changes that may warrant further evaluation. You may require MR imaging of the cervical spine to further evaluate this. Dr. Ahumada is a local surgeon that works on spines. I provided you his contact information. Coding Level of Care Code ED Underwriting Intern for Jaclyn Villaseñor
[2024-08-28 17:41] LABS: Basophils # 0.1 10^3/uL (0.0-0.1); Basophils % 0.6 %; Eosinophils % 0.2 %; Hematocrit 44.5 % (36-47); Lymphocytes # 1.8 10^3/uL (0.8-4.8); Lymphocytes % 18.2 %; Mean Corpuscular HGB Conc 31.7 g/dL (30-55); Mean Corpuscular Volume 91.4 fl (85-98); Mean Platelet Volume 10.4 fL (7.4-10.4); Monocytes # 0.7 10^3/uL (0.2-0.9); Monocytes % 7.3 %; Neutrophils # 7.11 10^3/uL (1.8-7.7); Neutrophils % 73.5 %; Nucleated Red Blood Cells % 0 %; Platelet Count 264 10^3/cmm (157-399); Red Blood Count 4.87 10^6/uL (3.85-5.65); Red Cell Distribution Width 12.7 % (12.1-15.1); White Blood Count 9.68 10^3/uL (3.29-11.43)
[2024-08-28 17:55] LABS: Bilirubin Urine Negative (Negative); Blood Urine Negative (Negative); Glucose Urine UA Negative (Normal); Ketones Urine Negative (Negative); Leukocyte Esterase Urine Negative (Negative); Nitrate Urine Negative (Negative); Protein Urine Negative (Negative); Specific Gravity, Urine 1.005 (1.005-1.030); Urine Appearance Clear (CLEAR); Urine Color Yellow (Yellow); Urobilinogen Urine 0.2 mg/dL (Negative); pH Urine 6.5 (5-7)
[2024-08-28 17:58] LABS: Add Urine Microscopic? YES; Bacteria Urine 1+ /hpf; RBC Urine 0-4 /hpf (0-2); Squamous Epithelial Cell Urine 0-4 /hpf (0-5); WBC Urine 0-4 /hpf (0-5)
[2024-08-28 17:59] VITALS: RESP 16; O2SAT 98
[2024-08-28] MEDS: ondansetron 2 mg/ML SDV 2 mL 4 MG IVP (17:59)
[2024-08-28] MEDS: HYDROmorphone 1 mg/mL INJ 1 mL 0.5 MG IVP ×2 (17:59→19:09)
[2024-08-28 18:01] LABS: Blood Urea Nitrogen 16 mg/dL (6-20); Calcium 9.6 mg/dL (8.5-10.5); Carbon Dioxide 29 mmol/L (22-29); Chloride 102 mmol/L (98-107); Creatinine Clr Calc Pharmacy 67.0364; Glomerular Filtration Rate 85.6 mL/min (90-130); Glucose 84 mg/dL (65-115); Osmolality Calculated 290 mOsm/kg (285-295); Sodium 140 mmol/L (136-145)
[2024-08-28 18:35] VITALS: BP 117/74; PULSE 73; RESP 16; O2SAT 95
[2024-08-28 19:09] VITALS: RESP 16; O2SAT 96
[2024-08-28 20:34] VITALS: BP 124/73; PULSE 76; RESP 16; O2SAT 96
== END 2024-08-28 20:35 | disposition home or self-care (01) ==
PROVIDERS: Emergency Provider Nurse Practitioner; PCP Family Medicine
DX: S30.0XXA Contusion of lower back and pelvis, initial encounter (principal); V80.919A Animal-rider injured in unspecified transport accident, initial encounter; M54.16 Radiculopathy, lumbar region; M54.50 Low back pain, unspecified; M54.2 Cervicalgia; G89.29 Other chronic pain
CPT/HCPCS: 70450; 72125; 72128; 72131; 74176; 80048; 81001; 85025; 96374; 96375; 96376; 99285; J1171; J2405

== ENCOUNTER 2024-11-03 10:32 | Emergency (ER) | payer MEDICARE, SELFPAY ==
[2024-11-03] VITALS (8 sets, daily range): BP systolic 99–144; BP diastolic 61–87; PULSE 85–117; TEMP 38.3; O2SAT 92–96; BMI 24.4
--- NOTE | 2024-11-03 10:37 | XRR_ITS ---
PROCEDURE INFORMATION: Exam: XR Chest Exam date and time: 11/03/2024 10:49 AM Age: 59 years old Clinical indication: Cough and fever TECHNIQUE: Imaging protocol: Radiologic exam of the chest. Views: 1 view. COMPARISON: CR XR chest 1V portable [id number] 02/05/2024 8:24 AM FINDINGS: Lungs: Unremarkable. No consolidation. Pleural spaces: Unremarkable. No pleural effusion. No pneumothorax. Heart/Mediastinum: Unremarkable. No cardiomegaly. Bones/joints: No acute abnormality. XR/XR chest 1V portable [id number] IMPRESSION: No acute findings.
[2024-11-03 12:09] LABS: Covid PCR NEGATIVE (Negative); Influenza A POSITIVE (Negative); Influenza B NEGATIVE (Negative); Respiratory Syncytial Virus Ce NEGATIVE (Negative)
--- NOTE | 2024-11-03 12:39 | ED_ITS ---
HPI - URI/Sore Throat 2 General: Chief Complaint: Upper Respiratory Infection Stated Complaint: cough,fever Time Seen by Provider: 11/03/24 11:07 History of Present Illness: 59-year-old female presents emergency ro om with complaint of cough myalgias aches short of breath. She has a temp of 101. She is seen a couple days ago started antibiotics and steroids by her primary care doctor. She has a history of previous PE related to use of oral contraceptive pills several years ago she is not currently on any anticoagulations. She reports having significant hemoptysis the last couple of days no improvement since starting antibiotics or steroids Associated symptoms: Reports chills and fever(s); Deny abdominal pain or chest pain Related Data Home Medications Medication Instructions Recorded Confirmed azithromycin 250 mg tablet See Rx Instructions .Route .COMPLEX 11/03/24 11/03/24 prednisone 20 mg tablet 20 mg PO DAILY 11/03/24 11/03/24 Previous Rx's Medication Instructions Recorded albuterol sulfate 90 mcg/actuation 2 inh inhalation Q4H PRN shortness 11/03/24 aerosol inhaler of breath or wheezing #18 grams promethazine-DM 6.25 mg-15 mg/5 mL 10 ml PO Q6H PRN cough #473 mL 11/03/24 oral syrup Allergies Allergy/AdvReac Type Severity Reaction Status Date / Time doxycycline Allergy Unknown UNKNOWN Verified 11/03/24 10:57 levofloxacin [From Levaquin] Allergy Unknown UNKNOWN Verified 11/03/24 10:57 morphine Allergy Unknown UNKNOWN Verified 11/03/24 10:57 benzonatate Allergy ALGY-Rash Verified 11/03/24 14:26 silk Allergy ALGY-Bliste Verified 11/03/24 10:57 r Review of Systems 2 Const: Reports: fever(s), chills and fatigue Card: Denies: chest pain Resp: Reports: dyspnea, wheezing, hemoptysis and chest congestion GI: Denies: abdominal pain : Denies: dysuria, urinary frequency or urinary urgency Musc: Denies: neck pain or back pain Skin/Breast: Denies: rash PFSH ED 2 PFSH: Medical History History of pulmonary embolus (PE) Surgical History H/O hernia repair H/O: hysterectomy Family History Other Cancer Diabetes Heart disease Social History Smoking and tobacco/nicotine status: never used tobacco/nicotine Second hand smoke exposure: No Alcohol intake: never Substance/Drug Use: never Do you think of yourself as: Straight/Heterosexual Current gender identity: Female Physical Exam 2 Const: COMMON NORMALS: no acute distress GENERAL APPEARANCE: cooperative and comfortable ORIENTATION/CONSCIOUSNESS: Yes awake, Yes oriented to person, Yes oriented to place and Yes oriented to time HENMT: COMMON NORMALS: normocephalic, atraumatic and hearing grossly normal bilaterally HEAD & SCALP: normocephalic and atraumatic Resp: COMMON NORMALS: normal respiratory effort, No retractions and No use of accessory muscles AUSCULTATION: rhonchi and wheezes Cardio: COMMON NORMALS: regular rate, regular rhythm and No murmurs present (Cardio) RATE: regular rate RHYTHM: regular rhythm GI: COMMON NORMALS: Soft to palpation and No hepatosplenomegaly present A USCULTATION: Yes normoactive bowel sounds PALPATION: Yes Soft to palpation, No Tenderness to palpation present (GI), No Guarding due to palpation present (GI) and Yes No hepatosplenomegaly present Extremity: COMMON NORMALS: normal to inspection, capillary refill normal, no clubbing, cyanosis or edema, no calf tenderness and no pedal edema Neuro: SENSORIUM/ORIENTATION: Yes oriented to person, Yes oriented to place and Yes oriented to time Skin: COMMON NORMALS: no rashes or lesions noted GENERAL SKIN EXAM: no rashes or lesions noted Course 2 Vital Signs: Vital signs: Vital Signs Temperature 101 F H 11/03/24 10:52 Pulse Rate 86 11/03/24 17:25 Blood Pressure 114/76 11/03/24 17:25 Pulse Oximetry 94 11/03/24 17:25 Oxygen Delivery Me thod Room Air 11/03/24 10:52 MDM - URI/Sore Throat Medical Decision Making Labs and imaging reviewed. EKG shows Sinus tachycardia with no acute ST changes. Chest x-ray and CTA of the chest are negative. There is no PE. Patient did test positive for influenza which I think explains her fever and symptoms. She is outside the window of opportunity for treatment with Tamiflu at this point. Patient given albuterol promethazine cough syrup for supportive cares and follow-up as needed Medical Records I reviewed the patient's medical records. Lab Data I reviewed the patient's lab results. 11/03/24 13:03 11/03/24 13:03 Radiology Impressions Chest X-Ray 11/03/24 10:37 IMPRESSION: No acute findings. Chest/Abdomen/Pelvis CT 11/03/24 13:46 IMPRESSION: 1. No pulmonary embolism. 2. Tiny amounts of bilateral dependent subsegmental atelectasis. 3. No other acute thoracic findings. 4. Additional details as above. IMPRESSION: 1. No acute abdominal or pelvic findings. 2. Additional details as above. Laboratory Results WBC 5.53 10^3/uL (3.29-11.43) 11/03/24 13:03 RBC 4.22 10^6/uL (3.85-5.65) 11/03/24 13:03 Hgb 12.40 g/dL (11.27-16.99) 11/03/24 13:03 Hct 38.2 % (36-47) 11/03/24 13:03 MCV 90.5 fl (85-98) 11/03/24 13:03 MCH 29.4 pg (27-33) 11/03/24 13:03 MCHC 32.5 g/dL (30-55) 11/03/24 13:03 RDW 12.5 % (12.1-15.1) 11/03/24 13:03 Plt Count 233 10^3/cmm (157-399) 11/03/24 13:03 MPV 9.6 fL (7.4-10.4) 11/03/24 13:03 Neut % (Auto) 87.5 % 11/03/24 13:03 Lymph % (Auto) 4.9 % 11/03/24 13:03 [place] % (Auto) 6.0 % 11/03/24 13:03 Eos % (Auto) 0.0 % 11/03/24 13:03 Baso % (Auto) 0.5 % 11/03/24 13:03 Neut # (Auto) 4.84 10^3/uL (1.8-7.7) 11/03/24 13:03 Lymph # (Auto) 0.3 10^3/uL (0.8-4.8) L 11/03/24 13:03 [place] # (Auto) 0.3 10^3/uL (0.2-0.9) 11/03/24 13:03 Eos # (Auto) 0.0 10^3/uL (0.0-0.8) 11/03/24 13:03 Baso # (Auto) 0.0 10^3/uL (0.0-0.1) 11/03/24 13:03 Nucleated RBC % (auto) 0 % 11/03/24 13:03 Nucleated RBCs # 0.0 /100WBC 11/03/24 13:03 Sodium 136 mmol/L (136-145) 11/03/24 13:03 Potassium 4.2 mmol/L (3.5-5.1) 11/03/24 13:03 Chloride 97 mmol/L (98-107) L 11/03/24 13:03 Carbon Dioxide 25 mmol/L (22-29) 11/03/24 13:03 Anion Gap 18.2 (5-19) 11/03/24 13:03 BUN 6 mg/dL (6-20) 11/03/24 13:03 Creatinine 0.7 mg/dL (0.5-0.9) 11/03/24 13:03 GFR Calculation 85.6 mL/min (90-130) L 11/03/24 13:03 Glucose 139 mg/dL (65-115) H 11/03/24 13:03 Calculated Osmolality 282 mOsm/kg (285-295) L 11/03/24 13:03 Calcium 9.0 mg/dL (8.5-10.5) 11/03/24 13:03 Total Bilirubin 0.2 mg/dL (0.15-1.2) 11/03/24 13:03 AST 64 U/L (0-32) H 11/03/24 13:03 ALT 123 U/L (0-33) H 11/03/24 13:03 Alkaline Phosphatase 137 U/L (35-105) H 11/03/24 13:03 Total Protein 7.4 g/dL (6.6-8.7) 11/03/24 13:03 Albumin 4.3 g/dL (3.5-5.2) 11/03/24 13:03 Globulin 3.1 g/dL (1.3-4.6) 11/03/24 13:03 Coronavirus (PCR) Negative (Negative) 11/03/24 11:00 Influenza A (PCR) Positive (Negative) 11/03/24 11:00 Influenza Type B (PCR) Negative (Negative) 11/03/24 11:00 RSV (PCR) Negative (Negative) 11/03/24 11:00 All radiology interpretation(s) finalized by discharge Discharge Plan Discharge Patient Disposition: Home Clinical Impression: Influenza Condition: Stable Prescriptions: New albuterol sulfate 90 mcg/actuation HFA aerosol inhaler 2 inh INHALATION Q4H PRN (Reason: shortness of breath or wheezing) Qty: 18 0RF promethazine-DM 6.25-15 mg/5 mL syrup 10 ml PO Q6H PRN (Reason: cough) Qty: 473 0RF No Action azithromycin 250 mg tablet See Rx Instructions .ROUTE .COMPLEX Rx Instructions: TAKE 2 TABLETS BY MOUTH ON DAY 1, THEN TAKE 1 TABLET DAILY ON DAYS 2-5 prednisone 20 mg tablet 20 mg PO DAILY Discharge Orders: Discharge ED (Routine); Ordered 11/03/24 Ordered By: Jorge Siu Referrals: Louise Mullen MD [Primary Care Provider] - Discharge Diet: Usual diet Discharge Activity: Increase activity as tolerated Patient Instructions: Influenza (ED), Opioid Safety, Pain Management Activity Restrictions/Additional Instructions: Thank you for choosing [facility] for your healthcare needs today. It is very important that you follow up as instructed or that you return to the Emergency Department should you have concerns or if your condition changes or worsens in any way. Coding Level of Care Code ED Dairy [employer]attle Farm Manager for Jaclyn Villaseñor
[2024-11-03] MEDS: acetaminophen 500 mg Tablet 1000 MG PO (12:59)
[2024-11-03 13:07] LABS: Basophils % 0.5 %; Hematocrit 38.2 % (36-47); Lymphocytes # 0.3 10^3/uL (0.8-4.8); Lymphocytes % 4.9 %; Mean Corpuscular HGB Conc 32.5 g/dL (30-55); Mean Corpuscular Hemoglobin 29.4 pg (27-33); Mean Corpuscular Volume 90.5 fl (85-98); Mean Platelet Volume 9.6 fL (7.4-10.4); Monocytes # 0.3 10^3/uL (0.2-0.9); Neutrophils # 4.84 10^3/uL (1.8-7.7); Neutrophils % 87.5 %; Nucleated Red Blood Cells % 0 %; Platelet Count 233 10^3/cmm (157-399); Red Blood Count 4.22 10^6/uL (3.85-5.65); Red Cell Distribution Width 12.5 % (12.1-15.1); White Blood Count 5.53 10^3/uL (3.29-11.43)
[2024-11-03 13:26] LABS: Alanine Aminotransferase 123 U/L (0-33); Albumin Level 4.3 g/dL (3.5-5.2); Alkaline Phosphatase 137 U/L (35-105); Anion Gap 18.2 (5-19); Aspartate Amino Transferase 64 U/L (0-32); Blood Urea Nitrogen 6 mg/dL (6-20); Carbon Dioxide 25 mmol/L (22-29); Chloride 97 mmol/L (98-107); Creatinine Clr Calc Pharmacy 68.2757; Globulin 3.1 g/dL (1.3-4.6); Glomerular Filtration Rate 85.6 mL/min (90-130); Glucose 139 mg/dL (65-115); Osmolality Calculated 282 mOsm/kg (285-295); Potassium 4.2 mmol/L (3.5-5.1); Sodium 136 mmol/L (136-145); Total Bilirubin 0.2 mg/dL (0.15-1.2); Total Protein 7.4 g/dL (6.6-8.7)
--- NOTE | 2024-11-03 13:46 | CTR_ITS ---
PROCEDURE INFORMATION: Exam: CTA Chest With Contrast Exam date and time: 11/03/2024 1:57 PM Age: 59 years old Clinical indication: Abdominal pain; Generalized; Other: Hyemoptysis; Additional info: Hemoptysis elevated lfts cough shortness of breath. , Cp TECHNIQUE: Imaging protocol: Computed tomographic angiography of the chest with contrast. Exam focused on the arteries. 3D rendering (Not supervised by radiologist): MIP and/or 3D reconstructed images were created by the technologist. Radiation optimization: All CT scans at this facility use at least one of these dose optimization techniques: automated exposure control; mA and/or kV adjustment per patient size (includes targeted exams where dose is matched to clinical indication); or iterative reconstruction. Contrast material: OMNIPAQUE 350; Contrast volume: 100 ml; Contrast route: INTRAVENOUS (IV); COMPARISON: CT abdomen and pelvis without contrast August 28, 2024 at 5:45 p.m. RADIATION DOSE METRICS: Total DLP (mGy-cm): 792.98 FINDINGS: Pulmonary arteries: Normal. No pulmonary emboli. Aorta: Unremarkable. No aortic aneurysm. No aortic dissection. Lungs: Small amount of scarring in both lower lungs. Tiny amounts of bilateral dependent subsegmental atelectasis. Tiny bulla in the right upper lobe. Otherwise, unremarkable. Pleural spaces: Unremarkable. No pneumothorax. No pleural effusion. Heart: Normal heart size. No evidence of right heart strain. The right ventricular to left ventricular ratio is 0.85. Coronary arteries: No calcification in the visualized coronary arteries. Lymph nodes: Unremarkable. No enlarged lymph nodes. Bones/joints: Unremarkable. No acute fracture. Soft tissues: Otherwise, unremarkable visualized body wall. Otherwise, unremarkable soft tissues. PROCEDURE INFORMATION: Exam: CT Abdomen And Pelvis With Contrast Exam date and time: 11/03/2024 1:57 PM Age: 59 years old Clinical indication: Abdominal pain; Generalized; Other: Hyemoptysis; Additional info: Hemoptysis elevated lfts cough shortness of breath. , Cp TECHNIQUE: Imaging protocol: Computed tomography of the abdomen and pelvis with contrast. Radiation optimization: All CT scans at this facility use at least one of these dose optimization techniques: automated exposure control; mA and/or kV adjustment per patient size (includes targeted exams where dose is matched to clinical indication); or iterative reconstruction. Contrast material: OMNIPAQUE 350; Contrast volume: 100 ml; Contrast route: INTRAVENOUS (IV); COMPARISON: CT abdomen pelvis wo con [id number] 08/28/2024 5:42 PM RADIATION DOSE METRICS: Total DLP (mGy-cm): 792.98 FINDINGS: Lungs: See above report. Liver: Normal. No mass. Gallbladder and biliary ducts: Unchanged cholecystectomy. Unremarkable bile ducts. Pancreas: Normal. No ductal dilation. Spleen: Normal. No splenomegaly. Adrenal glands: Normal. No mass. Kidneys and ureters: Normal. No hydronephrosis. Stomach and bowel: Unremarkable. No obstruction. No mucosal thickening. Appendix: No evidence of appendicitis. Intraperitoneal space: Unremarkable. No free air. No significant fluid collection. Vasculature: Unremarkable. No abdominal aortic aneurysm. Lymph nodes: Unremarkable. No enlarged lymph nodes. Urinary bladder: Unremarkable as visualized. Reproductive: Unchanged hysterectomy. Otherwise, unremarkable. Bones/joints: Very mild scoliosis. Minimal spondylosis. Otherwise, unremarkable. Soft tissues: Otherwise, unremarkable visualized body wall. Otherwise, unremarkable soft tissues. CT/CT angio chest w abd pel w con IMPRESSION: 1. No pulmonary embolism. 2. Tiny amounts of bilateral dependent subsegmental atelectasis. 3. No other acute thoracic findings. 4. Additional details as above. IMPRESSION: 1. No acute abdominal or pelvic findings. 2. Additional details as above.
[2024-11-03] MEDS: iohexol 350 mg/mL 500 mL Btl (per mL) IV (14:06)
--- NOTE | 2024-11-03 14:24 | PC.PHAR ---
Pt was given Benzonatate 100mg but had an allergic reaction and can't take it anymore. Removed from chart.
--- NOTE | 2024-11-03 15:13 | ECG_ITS ---
[facility] Test Date: 2024-11-03 Pat Name: Diana Quiros Department: Room: Gender: Female Unbundler: : 1965 Requested By: Jorge Carson Order Number: [id number] Tereza MD: Basilio Espino M.D. Measurements Intervals [place] Rate: 115 P: 58 MO: 154 QRS: 11 QRSD: 93 T: 50 QT: 309 QTc: 429 Interpretive Statements SINUS TACHYCARDIA POSSIBLE LEFT ATRIAL ENLARGEMENT [-0.1mV P-WAVE IN V1/V2] INCOMPLETE RIGHT BUNDLE BRANCH BLOCK [90+ ms QRS DURATION, TERMINAL R IN V1/V2, 40+ ms S IN I/aVL/V4/V5/V6] ABNORMAL RHYTHM ECG No previous ECG available for comparison Electronically Signed On 11-04-2024 12:30:57 [facility] WET PROCESS by Basilio Espino M.D. [email or web address]
== END 2024-11-03 17:30 | disposition home or self-care (01) ==
PROVIDERS: Emergency Medicine; Emergency Provider Family Medicine; PCP Family Medicine
DX: J10.1 Influenza due to other identified influenza virus with other respiratory manifestations (principal); Z11.52 Encounter for screening for COVID-19
CPT/HCPCS: 71045; 71275; 74177; 80053; 85025; 87637; 93005; 93010; 99285

== ENCOUNTER → 2024-12-20 08:39 | Outpatient (BNVA) | payer MEDICARE, SELFPAY | PROVIDERS: PCP Family Medicine; Visit Provider Family Medicine | DX: E78.5 Hyperlipidemia, unspecified (principal); R53.83 Other fatigue | CPT/HCPCS: 80053; 80061; 84443 ==